=== PATIENT | female | born 1940 | race Caucasian/White ===

== ENCOUNTER 2016-08-05 08:25 | Outpatient (CLI) | payer MEDICARE ==
[2016-08-05 08:58] LABS: Eosinophils 6 % (0-10); Hemoglobin 12.5 g/dL (12.0-16.0); Lymphocytes 55 % (21-51); MDiff Complete? YES; Mean Corpuscular Hemoglobin 31.2 pg (27.0-31.0); Mean Corpuscular Volume 97.4 fl (81.0-99.0); Mean Platelet Volume 6.7 fL (7.4-10.4); Monocytes 2 % (0-10); Neutrophil 37 % (42-75); Platelet Count 174 thou/uL (130-400); RBC Distribution Width 13.4 % (11.5-14.5); Red Blood Cell (RBC) Count 4.01 mill/uL (4.20-5.40); White Blood Cell (WBC) Count 6.7 thou/uL (4.8-10.8)
[2016-08-05 08:59] LABS: ALT (SGPT) 15 U/L (0-55); AST (SGOT) 17 U/L (5-34); Albumin 3.9 g/dL (3.4-4.8); Alkaline Phosphatase 82 U/L (40-150); Anion Gap 15 mmol/L (10-20); BUN (Urea Nitrogen) 35 mg/dL (9.8-20.1); Bilirubin, Total 0.5 mg/dL (0.2-1.2); Calc. Creatinine Clearance 0 mL/min (70-130); Calcium 9.1 mg/dL (7.8-10.44); Carbon Dioxide 24 mmol/L (23-31); Cardiac Risk 2.3 (Less than 4.5); Chloride 108 mmol/L (98-107); Cholesterol 172 mg/dL (< 200 Desired); Estimated GFR-MDRD 54; Globulin 2.7 g/dL (2.4-3.5); Glucose 86 mg/dL (83-110); HDL Cholesterol 74 mg/dL (>60 Neg Risk); LDL Cholesterol, Calculated 75 mg/dL; Potassium 4.3 mmol/L (3.5-5.1); Protein, Total 6.6 g/dL (5.8-8.1); Sodium 143 mmol/L (136-145); Triglycerides 114 mg/dL (Less than 150); Uric Acid 6.7 mg/dL (2.6-6.0)
[2016-08-05 10:09] LABS: Thyroid Stimulating Hormone 8.1635 uIU/mL (0.35-4.94); Vitamin D, 25 Hydroxy 22.8 ng/mL (> 30.0)
== END 2016-08-05 08:26 | disposition home or self-care (01) ==
LOC: MADLAB 08:25
PROVIDERS: ATTEND Specialist
DX: E78.5 Hyperlipidemia, unspecified (principal); E03.9 Hypothyroidism, unspecified; E55.9 Vitamin D deficiency, unspecified
CPT/HCPCS: 36415; 80053; 80061; 82306; 84443; 84550; 85025

== ENCOUNTER 2018-09-02 10:31 | Outpatient (CLI) | payer MEDICARE, MEDICAID ==
[2018-09-02 11:24] LABS: Anion Gap 19 mmol/L (10-20); BUN (Urea Nitrogen) 32 mg/dL (9.8-20.1); Calc. Creatinine Clearance 0 mL/min (70-130); Carbon Dioxide 19 mmol/L (23-31); Chloride 109 mmol/L (98-107); Estimated GFR-MDRD 27; Glucose 105 mg/dL (83-110); Sodium 144 mmol/L (136-145)
[2018-09-02 11:36] LABS: #Basophils 0.1 thou/uL (0.0-0.2); #Eosinphils 0.6 thou/uL (0.0-0.7); #Lymphocytes 2.4 thou/uL (1.20-3.40); #Monocytes 0.6 thou/uL (0.11-0.59); #Neutrophils 5.7 thou/uL (1.40-6.50); %Basophils 1.4 % (0.0-1.0); %Eosinophils 6.6 % (0.0-10.0); %Lymphocytes 25.2 % (21.0-51.0); %Monocytes 6.4 % (0.0-10.0); %Neutrophils 60.4 % (42.0-75.0); Hemoglobin 11.9 g/dL (12.0-16.0); Mean Corpuscular HGB CONC 30.8 g/dL (32.0-36.0); Mean Corpuscular Volume 107.2 fL (78.0-98.0); Mean Platelet Volume 6.6 fL (7.4-10.4); Platelet Count 306 thou/uL (130-400); RBC Distribution Width 16.9 % (11.5-14.5); Red Blood Cell (RBC) Count 3.61 mill/uL (4.20-5.40); White Blood Cell (WBC) Count 9.4 thou/uL (4.8-10.8)
[2018-09-02 11:37] LABS: Band 5 % (5-11); Eosinophils 7 % (0-10); Lymphocytes 22 % (21-51); MDiff Complete? YES; Macrocytosis SLIGHT = 6-15 cells (100X) (0-5/hpf); Monocytes 3 % (0-10); Neutrophil 63 % (42-75); Platelet Morphology Comment Appears Adequate
[2018-09-02 12:51] LABS: Potassium 2.7 mmol/L (3.5-5.1)
== END 2018-09-02 10:32 | disposition home or self-care (01) ==
LOC: MADLAB 10:31
PROVIDERS: ATTEND Specialist
DX: I11.0 Hypertensive heart disease with heart failure (principal); I50.9 Heart failure, unspecified
CPT/HCPCS: 36415; 80048; 83880; 85025

== ENCOUNTER 2019-06-26 11:46 | Emergency (ER) | payer MEDICARE, MEDICAID ==
[2019-06-26] MEDS ORDERED: Clindamycin 150 MG CAP ONE (12:21)
== END 2019-06-26 12:30 | disposition home or self-care (01) ==
LOC: MADERS 11:46
DX: L03.115 Cellulitis of right lower limb (principal); I10 Essential (primary) hypertension; M10.9 Gout, unspecified; M06.9 Rheumatoid arthritis, unspecified; F32.9 Major depressive disorder, single episode, unspecified; Z86.73 Personal history of transient ischemic attack (TIA), and cerebral infarction without residual deficits; Z79.899 Other long term (current) drug therapy
CPT/HCPCS: 99283

== ENCOUNTER 2020-09-04 16:34 | Inpatient (IN) | payer MEDICARE, MEDICAID ==
[2020-09-04] MEDS ORDERED: Ondansetron ODT 4 MG TAB PO PRN (18:04)
[2020-09-04] MEDS ORDERED: Nitroglycerin 0.4 MG TAB (25 Tab Bottle) SL PRN (18:04)
[2020-09-04] MEDS: Apixaban 5 MG TAB PO SCH (20:45)
[2020-09-04] MEDS: Magnesium Oxide 400 MG TAB PO SCH (20:45)
[2020-09-04] MEDS: Potassium Chloride 20 MEQ TAB PO SCH (20:46)
[2020-09-04] MEDS: Pramipexole Di-HCl 0.25 MG TAB PO SCH (20:46)
[2020-09-04] MEDS: Docusate 100 MG CAP PO SCH (20:47)
[2020-09-04] MEDS: Budesonide 0.5 MG/2 ML NEB NEB SCH (20:47)
[2020-09-04] MEDS: Acetaminophen 325 MG TAB PO PRN (20:57)
[2020-09-04] MEDS: Emollient 15 oz bottle 450 ML, Triamcinolone Acetonide 200 MG TOP SCH (21:02)
[2020-09-05 05:38] LABS: #Basophils 0.2 thou/uL (0.0-0.2); #Eosinphils 0.7 thou/uL (0.0-0.7); #Lymphocytes 1.1 thou/uL (1.20-3.40); #Monocytes 1.1 thou/uL (0.11-0.59); #Neutrophils 4.3 thou/uL (1.40-6.50); %Basophils 2.4 % (0.0-1.0); %Eosinophils 9.9 % (0.0-10.0); %Lymphocytes 15.3 % (21.0-51.0); %Monocytes 14.4 % (0.0-10.0); Hemoglobin 10.7 g/dL (12.0-16.0); Mean Corpuscular HGB CONC 32.2 g/dL (32.0-36.0); Mean Corpuscular Hemoglobin 32.3 pg (27.0-31.0); Mean Corpuscular Volume 100.5 fL (78.0-98.0); Mean Platelet Volume 6.7 fL (7.4-10.4); Platelet Count 338 thou/uL (130-400); RBC Distribution Width 12.9 % (11.5-14.5); Red Blood Cell (RBC) Count 3.32 mill/uL (4.20-5.40); White Blood Cell (WBC) Count 7.3 thou/uL (4.8-10.8)
[2020-09-05] MEDS: Levothyroxine Sodium 125 MCG TAB PO SCH (05:48)
[2020-09-05 05:52] LABS: ALT (SGPT) 13 U/L (8-55); AST (SGOT) 24 U/L (5-34); Albumin 3.3 g/dL (3.4-4.8); Alkaline Phosphatase 73 U/L (40-110); Anion Gap 19 mmol/L (10-20); BUN (Urea Nitrogen) 54 mg/dL (9.8-20.1); Bilirubin, Total 0.3 mg/dL (0.2-1.2); Calc. Creatinine Clearance 32 mL/min (70-130); Calcium 9.6 mg/dL (7.8-10.44); Carbon Dioxide 31 mmol/L (23-31); Chloride 90 mmol/L (98-107); Globulin 3.9 g/dL (2.4-3.5); Glucose 108 mg/dL (83-110); Potassium 4.2 mmol/L (3.5-5.1); Protein, Total 7.2 g/dL (5.8-8.1); Sodium 136 mmol/L (136-145)
[2020-09-05] MEDS: traMADol HCl 50 MG TAB PO PRN (07:58)
[2020-09-05] MEDS: Venlafaxine XR 37.5 MG CAP PO SCH (08:38)
[2020-09-05] MEDS: Spironolactone 25 MG TAB PO SCH (08:38)
[2020-09-05] MEDS: Docusate 100 MG CAP PO SCH ×2 (08:38→21:13)
[2020-09-05] MEDS: Ferrous Sulfate 325 MG TAB PO SCH (08:38)
[2020-09-05] MEDS: Folic Acid 1 MG TAB PO SCH (08:38)
[2020-09-05] MEDS: DULoxetine 30 MG CAP PO SCH (08:38)
[2020-09-05] MEDS: Potassium Chloride 20 MEQ TAB PO SCH ×3 (08:39→21:14)
[2020-09-05] MEDS: Pramipexole Di-HCl 0.25 MG TAB PO SCH ×3 (08:39→21:15)
[2020-09-05] MEDS: Apixaban 5 MG TAB PO SCH (08:39)
[2020-09-05] MEDS: Furosemide 40 MG TAB PO SCH (08:39)
[2020-09-05] MEDS: Budesonide 0.5 MG/2 ML NEB NEB SCH ×2 (08:51→21:10)
[2020-09-05] MEDS: Emollient 15 oz bottle 450 ML, Triamcinolone Acetonide 200 MG TOP SCH ×2 (08:53→21:18)
[2020-09-05] MEDS ORDERED: Vancomycin HCl 750 MG VIAL IVPB SCH (09:00)
[2020-09-05] MEDS ORDERED: Evolocumab [Repatha Syringe] 140 MG/ML Syringe SC SCH (09:00)
[2020-09-05] MEDS: Vancomycin HCl 750 MG in Sodium Chloride 0.9% 250 ML 250 ML IVPB SCH (11:30)
[2020-09-05] MEDS: Acetaminophen 325 MG TAB PO PRN (14:58)
[2020-09-05] MEDS: Apixaban 2.5 MG TAB PO SCH (21:10)
[2020-09-05] MEDS: Magnesium Oxide 400 MG TAB PO SCH (21:13)
[2020-09-06] MEDS: Levothyroxine Sodium 125 MCG TAB PO SCH (05:29)
[2020-09-06] MEDS: Budesonide 0.5 MG/2 ML NEB NEB SCH ×2 (08:49→20:49)
[2020-09-06] MEDS: Pramipexole Di-HCl 0.25 MG TAB PO SCH ×3 (08:50→20:50)
[2020-09-06] MEDS: Venlafaxine XR 37.5 MG CAP PO SCH (08:50)
[2020-09-06] MEDS: DULoxetine 30 MG CAP PO SCH (08:50)
[2020-09-06] MEDS: Folic Acid 1 MG TAB PO SCH (08:51)
[2020-09-06] MEDS: Docusate 100 MG CAP PO SCH ×2 (08:51→20:52)
[2020-09-06] MEDS: Spironolactone 25 MG TAB PO SCH (08:51)
[2020-09-06] MEDS: Ferrous Sulfate 325 MG TAB PO SCH (08:51)
[2020-09-06] MEDS: Apixaban 2.5 MG TAB PO SCH ×2 (08:52→20:49)
[2020-09-06] MEDS: Furosemide 40 MG TAB PO SCH (08:52)
[2020-09-06] MEDS: Potassium Chloride 20 MEQ TAB PO SCH ×3 (08:52→20:51)
[2020-09-06] MEDS: Emollient 15 oz bottle 450 ML, Triamcinolone Acetonide 200 MG TOP SCH ×2 (08:53→20:52)
[2020-09-06] MEDS: Vancomycin HCl 750 MG in Sodium Chloride 0.9% 250 ML 250 ML IVPB SCH (11:19)
[2020-09-06] MEDS: Simethicone Chewable 80 MG TAB PO PRN (11:21)
[2020-09-06] MEDS: Magnesium Oxide 400 MG TAB PO SCH (20:51)
[2020-09-07] MEDS: Acetaminophen 325 MG TAB PO PRN (01:21)
[2020-09-07] MEDS: Levothyroxine Sodium 125 MCG TAB PO SCH (05:20)
[2020-09-07 05:44] LABS: Anisocytosis SLIGHT = 6-15 cells (100X) (0-5/hpf); Band 6 % (5-11); Eosinophils 8 % (0-10); Hypochromia SLIGHT = 6-15 cells (100X) (0-5/hpf); Lymphocytes 24 % (21-51); MDiff Complete? YES; Macrocytosis SLIGHT = 6-15 cells (100X) (0-5/hpf); Mean Corpuscular HGB CONC 30.7 g/dL (32.0-36.0); Mean Corpuscular Hemoglobin 31.1 pg (27.0-31.0); Mean Corpuscular Volume 101.4 fL (78.0-98.0); Monocytes 10 % (0-10); Neutrophil 52 % (42-75); Platelet Count 301 thou/uL (130-400); Platelet Morphology Comment Appears Adequate; RBC Distribution Width 13.6 % (11.5-14.5); White Blood Cell (WBC) Count 8.8 thou/uL (4.8-10.8)
[2020-09-07 05:46] LABS: Anion Gap 16 mmol/L (10-20); BUN (Urea Nitrogen) 60 mg/dL (9.8-20.1); Calc. Creatinine Clearance 32 mL/min (70-130); Calcium 9.2 mg/dL (7.8-10.44); Carbon Dioxide 29 mmol/L (23-31); Chloride 96 mmol/L (98-107); Glucose 101 mg/dL (83-110); Potassium 6.1 mmol/L (3.5-5.1); Sodium 135 mmol/L (136-145)
[2020-09-07] MEDS: Budesonide 0.5 MG/2 ML NEB NEB SCH ×2 (09:33→21:46)
[2020-09-07] MEDS: DULoxetine 30 MG CAP PO SCH (09:34)
[2020-09-07] MEDS: Apixaban 2.5 MG TAB PO SCH ×2 (09:35→21:46)
[2020-09-07] MEDS: Venlafaxine XR 37.5 MG CAP PO SCH (09:35)
[2020-09-07] MEDS: Ferrous Sulfate 325 MG TAB PO SCH (09:36)
[2020-09-07] MEDS: Folic Acid 1 MG TAB PO SCH (09:36)
[2020-09-07] MEDS: Docusate 100 MG CAP PO SCH ×2 (09:36→21:46)
[2020-09-07] MEDS: Pramipexole Di-HCl 0.25 MG TAB PO SCH ×3 (09:37→21:46)
[2020-09-07] MEDS: Spironolactone 25 MG TAB PO SCH (09:37)
[2020-09-07] MEDS: Furosemide 40 MG TAB PO SCH (09:37)
[2020-09-07] MEDS: Potassium Chloride 20 MEQ TAB PO SCH ×2 (09:38→15:10)
[2020-09-07] MEDS: Emollient 15 oz bottle 450 ML, Triamcinolone Acetonide 200 MG TOP SCH ×2 (09:38→21:48)
[2020-09-07 11:13] LABS: Vancomycin, Trough 25.8 ug/mL
[2020-09-07] MEDS: Vancomycin HCl 750 MG in Sodium Chloride 0.9% 250 ML 250 ML IVPB SCH (11:46)
[2020-09-07] MEDS ORDERED: Vancomycin HCl 750 MG in Sodium Chloride 0.9% 250 ML 250 ML IVPB SCH (19:45)
[2020-09-07] MEDS: Magnesium Oxide 400 MG TAB PO SCH (21:46)
[2020-09-08] MEDS: Acetaminophen 325 MG TAB PO PRN ×2 (04:02→08:17)
[2020-09-08] MEDS: Levothyroxine Sodium 125 MCG TAB PO SCH (05:52)
[2020-09-08] MEDS: Pramipexole Di-HCl 0.25 MG TAB PO SCH ×3 (08:16→21:02)
[2020-09-08] MEDS: Furosemide 40 MG TAB PO SCH (08:17)
[2020-09-08] MEDS: Budesonide 0.5 MG/2 ML NEB NEB SCH ×2 (08:17→21:03)
[2020-09-08] MEDS: DULoxetine 30 MG CAP PO SCH (08:17)
[2020-09-08] MEDS: Venlafaxine XR 37.5 MG CAP PO SCH (08:18)
[2020-09-08] MEDS: Docusate 100 MG CAP PO SCH ×2 (08:19→21:02)
[2020-09-08] MEDS: Ferrous Sulfate 325 MG TAB PO SCH (08:19)
[2020-09-08] MEDS: Emollient 15 oz bottle 450 ML, Triamcinolone Acetonide 200 MG TOP SCH ×2 (08:20→21:03)
[2020-09-08] MEDS: Apixaban 2.5 MG TAB PO SCH ×2 (08:20→21:02)
[2020-09-08] MEDS: Folic Acid 1 MG TAB PO SCH (08:20)
[2020-09-08 11:18] LABS: Vancomycin, Random 25.4 ug/mL (See Comment)
[2020-09-08] MEDS: Nystatin 500,000 UNITS/5 ML UDCUP SSW SCH ×3 (13:11→21:01)
[2020-09-08] MEDS: Magnesium Oxide 400 MG TAB PO SCH (21:02)
[2020-09-09] MEDS: Levothyroxine Sodium 125 MCG TAB PO SCH (05:22)
[2020-09-09 05:58] LABS: Anion Gap 18 mmol/L (10-20); BUN (Urea Nitrogen) 58 mg/dL (9.8-20.1); Calc. Creatinine Clearance 37 mL/min (70-130); Calcium 9.1 mg/dL (7.8-10.44); Carbon Dioxide 28 mmol/L (23-31); Chloride 94 mmol/L (98-107); Glucose 102 mg/dL (83-110); Potassium 4.8 mmol/L (3.5-5.1); Sodium 135 mmol/L (136-145)
[2020-09-09] MEDS: Pramipexole Di-HCl 0.25 MG TAB PO SCH ×3 (08:32→21:16)
[2020-09-09] MEDS: Simethicone Chewable 80 MG TAB PO PRN (08:32)
[2020-09-09] MEDS: Nystatin 500,000 UNITS/5 ML UDCUP SSW SCH ×4 (08:32→21:17)
[2020-09-09] MEDS: Venlafaxine XR 37.5 MG CAP PO SCH (08:33)
[2020-09-09] MEDS: Budesonide 0.5 MG/2 ML NEB NEB SCH ×2 (08:33→21:23)
[2020-09-09] MEDS: Ferrous Sulfate 325 MG TAB PO SCH (08:33)
[2020-09-09] MEDS: DULoxetine 30 MG CAP PO SCH (08:33)
[2020-09-09] MEDS: Folic Acid 1 MG TAB PO SCH (08:34)
[2020-09-09] MEDS: Apixaban 2.5 MG TAB PO SCH ×2 (08:34→21:19)
[2020-09-09] MEDS: Furosemide 40 MG TAB PO SCH (08:34)
[2020-09-09] MEDS: Docusate 100 MG CAP PO SCH ×2 (08:34→21:17)
[2020-09-09] MEDS: Methotrexate Sodium 2.5 MG TAB PO SCH ×2 (08:39→08:40)
[2020-09-09] MEDS: Emollient 15 oz bottle 450 ML, Triamcinolone Acetonide 200 MG TOP SCH ×2 (08:40→21:26)
[2020-09-09] MEDS: Magnesium Oxide 400 MG TAB PO SCH (21:17)
[2020-09-10] MEDS: Acetaminophen 325 MG TAB PO PRN (00:15)
[2020-09-10] MEDS: Levothyroxine Sodium 125 MCG TAB PO SCH (05:56)
[2020-09-10] MEDS: Pramipexole Di-HCl 0.25 MG TAB PO SCH ×3 (08:21→21:13)
[2020-09-10] MEDS: Nystatin 500,000 UNITS/5 ML UDCUP SSW SCH ×5 (08:21→21:22)
[2020-09-10] MEDS: Budesonide 0.5 MG/2 ML NEB NEB SCH ×2 (08:21→21:16)
[2020-09-10] MEDS: Ferrous Sulfate 325 MG TAB PO SCH (08:22)
[2020-09-10] MEDS: Venlafaxine XR 37.5 MG CAP PO SCH (08:22)
[2020-09-10] MEDS: Apixaban 2.5 MG TAB PO SCH ×2 (08:22→21:14)
[2020-09-10] MEDS: DULoxetine 30 MG CAP PO SCH (08:22)
[2020-09-10] MEDS: Emollient 15 oz bottle 450 ML, Triamcinolone Acetonide 200 MG TOP SCH ×2 (08:23→21:17)
[2020-09-10] MEDS: Folic Acid 1 MG TAB PO SCH (08:23)
[2020-09-10] MEDS: Furosemide 40 MG TAB PO SCH (08:23)
[2020-09-10] MEDS: Polyethylene Glycol 3350 17 GM Packet PO SCH (10:08)
[2020-09-10 13:11] LABS: Vancomycin, Random 14.5 ug/mL (See Comment)
[2020-09-10] MEDS: Magnesium Oxide 400 MG TAB PO SCH (21:13)
[2020-09-10] MEDS: Melatonin 3 MG TAB PO SCH (21:15)
[2020-09-11] MEDS: Levothyroxine Sodium 125 MCG TAB PO SCH (06:06)
[2020-09-11] MEDS: Venlafaxine XR 37.5 MG CAP PO SCH (10:13)
[2020-09-11] MEDS: Pramipexole Di-HCl 0.25 MG TAB PO SCH ×3 (10:13→21:45)
[2020-09-11] MEDS: Folic Acid 1 MG TAB PO SCH (10:14)
[2020-09-11] MEDS: Ferrous Sulfate 325 MG TAB PO SCH (10:14)
[2020-09-11] MEDS: Apixaban 2.5 MG TAB PO SCH ×2 (10:15→21:47)
[2020-09-11] MEDS: Nystatin 500,000 UNITS/5 ML UDCUP SSW SCH ×4 (10:15→21:30)
[2020-09-11] MEDS: DULoxetine 30 MG CAP PO SCH (10:15)
[2020-09-11] MEDS: Furosemide 40 MG TAB PO SCH (10:15)
[2020-09-11] MEDS: Budesonide 0.5 MG/2 ML NEB NEB SCH ×2 (10:18→21:47)
[2020-09-11] MEDS: Polyethylene Glycol 3350 17 GM Packet PO SCH (10:19)
[2020-09-11] MEDS: Emollient 15 oz bottle 450 ML, Triamcinolone Acetonide 200 MG TOP SCH ×2 (10:19→21:00)
[2020-09-11] MEDS: Acetaminophen 325 MG TAB PO PRN ×2 (11:01→21:47)
[2020-09-11] MEDS: Magnesium Oxide 400 MG TAB PO SCH (21:45)
[2020-09-11] MEDS: Melatonin 3 MG TAB PO SCH (21:46)
[2020-09-12] MEDS: Levothyroxine Sodium 125 MCG TAB PO SCH (04:56)
[2020-09-12] MEDS ORDERED: Zolpidem Tartrate 5 MG TAB PO PRN (08:16)
[2020-09-12] MEDS ORDERED: Promethazine DM 6.25-15mg/5ml 120 ML BOT PO PRN ×2 (08:17→14:45)
[2020-09-12] MEDS: Polyethylene Glycol 3350 17 GM Packet PO SCH (08:57)
[2020-09-12] MEDS: Nystatin 500,000 UNITS/5 ML UDCUP SSW SCH ×4 (08:57→20:48)
[2020-09-12] MEDS: Pramipexole Di-HCl 0.25 MG TAB PO SCH (08:57)
[2020-09-12] MEDS: Apixaban 2.5 MG TAB PO SCH ×2 (08:58→20:43)
[2020-09-12] MEDS: DULoxetine 30 MG CAP PO SCH (08:58)
[2020-09-12] MEDS: Folic Acid 1 MG TAB PO SCH (08:59)
[2020-09-12] MEDS: Ferrous Sulfate 325 MG TAB PO SCH (08:59)
[2020-09-12] MEDS: Venlafaxine XR 37.5 MG CAP PO SCH (08:59)
[2020-09-12] MEDS: Furosemide 40 MG TAB PO SCH (08:59)
[2020-09-12] MEDS: Acetaminophen 325 MG TAB PO PRN (09:00)
[2020-09-12] MEDS: Budesonide 0.5 MG/2 ML NEB NEB SCH ×2 (09:00→20:46)
[2020-09-12] MEDS: Emollient 15 oz bottle 450 ML, Triamcinolone Acetonide 200 MG TOP SCH ×2 (10:28→20:46)
[2020-09-12] MEDS: Pramipexole Di-HCl 1 MG TAB PO SCH ×2 (15:07→20:45)
[2020-09-12] MEDS: Guaifenesin DM 100-10/5 ML UDCUP PO PRN (17:21)
[2020-09-12] MEDS ORDERED: Furosemide 40 MG TAB PO SCH (18:15)
[2020-09-12] MEDS: Magnesium Oxide 400 MG TAB PO SCH (20:44)
[2020-09-13] MEDS: Levothyroxine Sodium 125 MCG TAB PO SCH (05:39)
[2020-09-13 05:41] LABS: #Basophils 0.1 thou/uL (0.0-0.2); #Eosinphils 0.8 thou/uL (0.0-0.7); #Lymphocytes 1.9 thou/uL (1.20-3.40); #Monocytes 0.2 thou/uL (0.11-0.59); #Neutrophils 3.4 thou/uL (1.40-6.50); %Basophils 2.3 % (0.0-1.0); %Eosinophils 12.4 % (0.0-10.0); %Monocytes 2.8 % (0.0-10.0); %Neutrophils 53.5 % (42.0-75.0); Hemoglobin 9.1 g/dL (12.0-16.0); Mean Corpuscular Hemoglobin 31.2 pg (27.0-31.0); Mean Corpuscular Volume 100.5 fL (78.0-98.0); Mean Platelet Volume 6.4 fL (7.4-10.4); Platelet Count 274 thou/uL (130-400); RBC Distribution Width 14.2 % (11.5-14.5); Red Blood Cell (RBC) Count 2.93 mill/uL (4.20-5.40); White Blood Cell (WBC) Count 6.4 thou/uL (4.8-10.8)
[2020-09-13 05:45] LABS: Anion Gap 14 mmol/L (10-20); BUN (Urea Nitrogen) 56 mg/dL (9.8-20.1); Calc. Creatinine Clearance 44 mL/min (70-130); Carbon Dioxide 35 mmol/L (23-31); Chloride 94 mmol/L (98-107); Glucose 88 mg/dL (83-110); Potassium 4.4 mmol/L (3.5-5.1); Sodium 139 mmol/L (136-145)
[2020-09-13] MEDS: Pramipexole Di-HCl 1 MG TAB PO SCH ×3 (08:47→20:40)
[2020-09-13] MEDS: Venlafaxine XR 37.5 MG CAP PO SCH (08:47)
[2020-09-13] MEDS: Folic Acid 1 MG TAB PO SCH (08:47)
[2020-09-13] MEDS: Ferrous Sulfate 325 MG TAB PO SCH (08:47)
[2020-09-13] MEDS: Budesonide 0.5 MG/2 ML NEB NEB SCH ×2 (08:48→20:36)
[2020-09-13] MEDS: DULoxetine 30 MG CAP PO SCH (08:48)
[2020-09-13] MEDS: Apixaban 5 MG TAB PO SCH ×2 (08:50→20:39)
[2020-09-13] MEDS: Furosemide 40 MG TAB PO SCH ×2 (08:51→15:15)
[2020-09-13] MEDS: Acetaminophen 325 MG TAB PO PRN ×2 (08:59→20:39)
[2020-09-13] MEDS: Polyethylene Glycol 3350 17 GM Packet PO SCH (08:59)
[2020-09-13] MEDS: Guaifenesin DM 100-10/5 ML UDCUP PO PRN (09:00)
[2020-09-13] MEDS: Nystatin 500,000 UNITS/5 ML UDCUP SSW SCH ×4 (09:48→20:41)
[2020-09-13] MEDS: Emollient 15 oz bottle 450 ML, Triamcinolone Acetonide 200 MG TOP SCH ×2 (09:49→20:41)
[2020-09-13] MEDS: Cepastat Lozenges 1 LOZ PO PRN ×2 (12:28→20:39)
[2020-09-13] MEDS: Magnesium Oxide 400 MG TAB PO SCH (20:37)
[2020-09-13] MEDS: Zolpidem Tartrate 5 MG TAB PO PRN (20:40)
[2020-09-14] MEDS: Cepastat Lozenges 1 LOZ PO PRN (04:30)
[2020-09-14] MEDS: Levothyroxine Sodium 125 MCG TAB PO SCH (05:22)
[2020-09-14] MEDS: Acetaminophen 325 MG TAB PO PRN (09:26)
[2020-09-14] MEDS: Polyethylene Glycol 3350 17 GM Packet PO SCH (09:28)
[2020-09-14] MEDS: Pramipexole Di-HCl 1 MG TAB PO SCH ×3 (09:29→20:57)
[2020-09-14] MEDS: Folic Acid 1 MG TAB PO SCH (09:29)
[2020-09-14] MEDS: Venlafaxine XR 37.5 MG CAP PO SCH (09:29)
[2020-09-14] MEDS: Ferrous Sulfate 325 MG TAB PO SCH (09:29)
[2020-09-14] MEDS: DULoxetine 30 MG CAP PO SCH (09:30)
[2020-09-14] MEDS: Furosemide 40 MG TAB PO SCH ×2 (09:30→14:10)
[2020-09-14] MEDS: Apixaban 5 MG TAB PO SCH ×2 (09:30→21:03)
[2020-09-14] MEDS: Budesonide 0.5 MG/2 ML NEB NEB SCH ×2 (09:30→21:01)
[2020-09-14] MEDS: Nystatin 500,000 UNITS/5 ML UDCUP SSW SCH ×4 (09:31→20:57)
[2020-09-14] MEDS: Emollient 15 oz bottle 450 ML, Triamcinolone Acetonide 200 MG TOP SCH ×2 (09:31→21:08)
[2020-09-14] MEDS: traMADol HCl 50 MG TAB PO PRN (19:34)
[2020-09-14] MEDS: Magnesium Oxide 400 MG TAB PO SCH (20:57)
[2020-09-15] MEDS: Levothyroxine Sodium 125 MCG TAB PO SCH (05:26)
[2020-09-15] MEDS: Ferrous Sulfate 325 MG TAB PO SCH (09:11)
[2020-09-15] MEDS: Apixaban 5 MG TAB PO SCH ×2 (09:12→20:59)
[2020-09-15] MEDS: Venlafaxine XR 37.5 MG CAP PO SCH (09:12)
[2020-09-15] MEDS: Folic Acid 1 MG TAB PO SCH (09:12)
[2020-09-15] MEDS: Polyethylene Glycol 3350 17 GM Packet PO SCH (09:12)
[2020-09-15] MEDS: Pramipexole Di-HCl 1 MG TAB PO SCH ×3 (09:12→21:00)
[2020-09-15] MEDS: DULoxetine 30 MG CAP PO SCH (09:13)
[2020-09-15] MEDS: Furosemide 40 MG TAB PO SCH ×2 (09:13→13:40)
[2020-09-15] MEDS: Nystatin 500,000 UNITS/5 ML UDCUP SSW SCH ×4 (09:13→21:01)
[2020-09-15] MEDS: Budesonide 0.5 MG/2 ML NEB NEB SCH ×2 (09:14→21:11)
[2020-09-15] MEDS: Emollient 15 oz bottle 450 ML, Triamcinolone Acetonide 200 MG TOP SCH ×2 (10:53→19:45)
[2020-09-15] MEDS: traMADol HCl 50 MG TAB PO PRN (19:42)
[2020-09-15] MEDS: Magnesium Oxide 400 MG TAB PO SCH (20:59)
[2020-09-15] MEDS: Acetaminophen 325 MG TAB PO PRN (21:07)
[2020-09-16] MEDS: Levothyroxine Sodium 125 MCG TAB PO SCH (05:27)
[2020-09-16] MEDS: traMADol HCl 50 MG TAB PO PRN (07:41)
[2020-09-16] MEDS: Ferrous Sulfate 325 MG TAB PO SCH (07:41)
[2020-09-16] MEDS: Polyethylene Glycol 3350 17 GM Packet PO SCH (09:29)
[2020-09-16] MEDS: Venlafaxine XR 37.5 MG CAP PO SCH (09:31)
[2020-09-16] MEDS: DULoxetine 30 MG CAP PO SCH (09:31)
[2020-09-16] MEDS: Pramipexole Di-HCl 1 MG TAB PO SCH ×3 (09:31→20:44)
[2020-09-16] MEDS: Folic Acid 1 MG TAB PO SCH (09:31)
[2020-09-16] MEDS: Apixaban 5 MG TAB PO SCH ×2 (09:31→20:41)
[2020-09-16] MEDS: Nystatin 500,000 UNITS/5 ML UDCUP SSW SCH ×4 (09:32→20:41)
[2020-09-16] MEDS: Furosemide 40 MG TAB PO SCH ×2 (09:32→15:05)
[2020-09-16] MEDS: Budesonide 0.5 MG/2 ML NEB NEB SCH ×2 (09:35→20:43)
[2020-09-16] MEDS: Acetaminophen 325 MG TAB PO PRN (09:44)
[2020-09-16] MEDS: Methotrexate Sodium 2.5 MG TAB PO SCH (09:45)
[2020-09-16] MEDS: Emollient 15 oz bottle 450 ML, Triamcinolone Acetonide 200 MG TOP SCH ×2 (11:03→20:45)
[2020-09-16] MEDS: Cepastat Lozenges 1 LOZ PO PRN ×2 (11:04→20:42)
[2020-09-16] MEDS: Magnesium Oxide 400 MG TAB PO SCH (20:41)
[2020-09-16] MEDS: Zolpidem Tartrate 5 MG TAB PO PRN (20:43)
[2020-09-17] MEDS: Levothyroxine Sodium 125 MCG TAB PO SCH (05:22)
[2020-09-17] MEDS: Cepastat Lozenges 1 LOZ PO PRN (06:25)
[2020-09-17] MEDS: Budesonide 0.5 MG/2 ML NEB NEB SCH ×2 (08:36→20:19)
[2020-09-17] MEDS: Pramipexole Di-HCl 1 MG TAB PO SCH ×3 (08:37→20:50)
[2020-09-17] MEDS: Folic Acid 1 MG TAB PO SCH (08:37)
[2020-09-17] MEDS: DULoxetine 30 MG CAP PO SCH (08:37)
[2020-09-17] MEDS: Venlafaxine XR 37.5 MG CAP PO SCH (08:37)
[2020-09-17] MEDS: Apixaban 5 MG TAB PO SCH ×2 (08:38→20:24)
[2020-09-17] MEDS: Furosemide 40 MG TAB PO SCH ×2 (08:38→14:10)
[2020-09-17] MEDS: Ferrous Sulfate 325 MG TAB PO SCH (08:38)
[2020-09-17] MEDS: Emollient 15 oz bottle 450 ML, Triamcinolone Acetonide 200 MG TOP SCH ×2 (08:38→20:49)
[2020-09-17] MEDS: Polyethylene Glycol 3350 17 GM Packet PO SCH (08:39)
[2020-09-17] MEDS: Nystatin 500,000 UNITS/5 ML UDCUP SSW SCH ×4 (08:39→20:48)
[2020-09-17 11:17] VITALS: BMI 36.4
[2020-09-17] MEDS: Acetaminophen 325 MG TAB PO PRN (14:13)
[2020-09-17] MEDS: traMADol HCl 50 MG TAB PO PRN (19:22)
[2020-09-17] MEDS: Magnesium Oxide 400 MG TAB PO SCH (20:22)
[2020-09-18] MEDS: Acetaminophen 325 MG TAB PO PRN ×2 (02:31→15:29)
[2020-09-18] MEDS: Cepastat Lozenges 1 LOZ PO PRN (02:32)
[2020-09-18] MEDS: Levothyroxine Sodium 125 MCG TAB PO SCH (05:26)
[2020-09-18] MEDS: Polyethylene Glycol 3350 17 GM Packet PO SCH (08:51)
[2020-09-18] MEDS: Ferrous Sulfate 325 MG TAB PO SCH (08:55)
[2020-09-18] MEDS: Pramipexole Di-HCl 1 MG TAB PO SCH ×3 (08:55→21:47)
[2020-09-18] MEDS: Apixaban 5 MG TAB PO SCH ×2 (08:55→21:21)
[2020-09-18] MEDS: Furosemide 40 MG TAB PO SCH ×3 (08:55→15:23)
[2020-09-18] MEDS: Nystatin 500,000 UNITS/5 ML UDCUP SSW SCH ×4 (08:55→21:47)
[2020-09-18] MEDS: Folic Acid 1 MG TAB PO SCH (08:55)
[2020-09-18] MEDS: Venlafaxine XR 37.5 MG CAP PO SCH (08:56)
[2020-09-18] MEDS: DULoxetine 30 MG CAP PO SCH (08:56)
[2020-09-18] MEDS: Budesonide 0.5 MG/2 ML NEB NEB SCH ×2 (09:04→19:53)
[2020-09-18] MEDS: Emollient 15 oz bottle 450 ML, Triamcinolone Acetonide 200 MG TOP SCH ×2 (09:06→21:47)
[2020-09-18] MEDS: traMADol HCl 50 MG TAB PO PRN (16:24)
[2020-09-18 19:35] VITALS: BP 101/76; TEMP 97.9
[2020-09-18] MEDS: Magnesium Oxide 400 MG TAB PO SCH (21:47)
== END 2020-09-18 20:20 | disposition short-term general hospital (02) | DRG 602 ==
LOC: MADMS 16:34
PROVIDERS: ADMIT Family Medicine; ATTEND Family Medicine
DX: L03.115 Cellulitis of right lower limb (principal); I63.9 Cerebral infarction, unspecified; I50.32 Chronic diastolic (congestive) heart failure; J96.11 Chronic respiratory failure with hypoxia; I13.0 Hypertensive heart and chronic kidney disease with heart failure and stage 1 through stage 4 chronic kidney disease, or unspecified chronic kidney disease; G81.94 Hemiplegia, unspecified affecting left nondominant side; R53.81 Other malaise; L03.116 Cellulitis of left lower limb; I48.0 Paroxysmal atrial fibrillation; E66.01 Morbid (severe) obesity due to excess calories; E78.5 Hyperlipidemia, unspecified; M06.9 Rheumatoid arthritis, unspecified; I25.10 Atherosclerotic heart disease of native coronary artery without angina pectoris; K21.9 Gastro-esophageal reflux disease without esophagitis; F32.9 Major depressive disorder, single episode, unspecified; I27.20 Pulmonary hypertension, unspecified; L30.9 Dermatitis, unspecified; I87.2 Venous insufficiency (chronic) (peripheral); E87.5 Hyperkalemia; I89.0 Lymphedema, not elsewhere classified; G47.00 Insomnia, unspecified; G43.909 Migraine, unspecified, not intractable, without status migrainosus; N18.9 Chronic kidney disease, unspecified; Z88.0 Allergy status to penicillin; Z88.1 Allergy status to other antibiotic agents; Z88.8 Allergy status to other drugs, medicaments and biological substances; Z88.6 Allergy status to analgesic agent; Z79.01 Long term (current) use of anticoagulants; Z79.899 Other long term (current) drug therapy; Z79.890 Hormone replacement therapy; Z79.2 Long term (current) use of antibiotics; Z79.51 Long term (current) use of inhaled steroids; Z90.49 Acquired absence of other specified parts of digestive tract; Z90.710 Acquired absence of both cervix and uterus; Z90.89 Acquired absence of other organs; Z68.36 Body mass index [BMI] 36.0-36.9, adult; Z79.891 Long term (current) use of opiate analgesic
CPT/HCPCS: 36415; 71045; 80048; 80053; 80202; 83880; 85025; 94640; J3301; J3370; J7050; J7620; J7626; J8610; Q0162

== ENCOUNTER 2020-09-18 21:22 | Emergency (ER) | payer MEDICARE, MEDICAID | END 2020-09-18 23:21 | disposition short-term general hospital (02) | LOC: MADERS 21:22 | DX: I63.9 Cerebral infarction, unspecified (principal); R29.810 Facial weakness; G81.94 Hemiplegia, unspecified affecting left nondominant side; R51.9 Headache, unspecified; Z79.899 Other long term (current) drug therapy; Z79.01 Long term (current) use of anticoagulants; Z79.51 Long term (current) use of inhaled steroids | CPT/HCPCS: 70450; 71045 ==

== ENCOUNTER 2020-11-01 18:12 | Inpatient (IN) | payer MEDICARE, MEDICAID ==
[2020-11-01] MEDS ORDERED: Hyoscyamine Sulfate SL 0.125 mg Tablet SL PRN (20:08)
[2020-11-01] MEDS ORDERED: Nitroglycerin 0.4 MG TAB (25 Tab Bottle) SL PRN (20:10)
[2020-11-01] MEDS ORDERED: Ondansetron ODT 4 MG TAB SL PRN (20:11)
[2020-11-01] MEDS ORDERED: Simethicone Chewable 80 MG TAB PO PRN (20:21)
[2020-11-01] MEDS: levETIRAcetam 500 MG TAB PO SCH (21:38)
[2020-11-01] MEDS: DULoxetine 30 MG CAP PO SCH (21:38)
[2020-11-01] MEDS: DICLOFENAC TOP SCH (21:38)
[2020-11-01] MEDS: Apixaban 5 MG TAB PO SCH (21:38)
[2020-11-01] MEDS: Pramipexole Di-HCl 1 MG TAB PO SCH (21:39)
[2020-11-01] MEDS: Acetaminophen 325 MG TAB PO PRN (21:39)
[2020-11-02] MEDS: Lorazepam 0.5 MG TAB PO PRN ×2 (03:37→22:00)
[2020-11-02] MEDS: Levothyroxine Sodium 125 MCG TAB PO SCH (05:44)
[2020-11-02] MEDS: Pramipexole Di-HCl 1 MG TAB PO SCH ×3 (09:37→20:14)
[2020-11-02] MEDS: Polyethylene Glycol 3350 17 GM Packet PO SCH (09:37)
[2020-11-02] MEDS: levETIRAcetam 500 MG TAB PO SCH ×2 (09:38→20:15)
[2020-11-02] MEDS: Acetaminophen 325 MG TAB PO PRN ×3 (09:38→22:00)
[2020-11-02] MEDS: Furosemide 20 MG TAB PO SCH (09:38)
[2020-11-02] MEDS: Apixaban 5 MG TAB PO SCH ×2 (09:38→20:15)
[2020-11-02] MEDS: Aspirin Chewable 81 MG TAB PO SCH (09:38)
[2020-11-02] MEDS: DICLOFENAC TOP SCH ×3 (09:39→20:16)
[2020-11-02] MEDS: DULoxetine 30 MG CAP PO SCH (20:14)
[2020-11-02] MEDS: Budesonide 0.5 MG/2 ML NEB NEB SCH (20:16)
[2020-11-03] MEDS: traMADol HCl 50 MG TAB PO PRN ×2 (04:45→20:50)
[2020-11-03] MEDS: Levothyroxine Sodium 125 MCG TAB PO SCH (04:48)
[2020-11-03] MEDS: Aspirin Chewable 81 MG TAB PO SCH (08:30)
[2020-11-03] MEDS: Furosemide 20 MG TAB PO SCH (08:30)
[2020-11-03] MEDS: levETIRAcetam 500 MG TAB PO SCH ×2 (08:30→20:49)
[2020-11-03] MEDS: Acetaminophen 325 MG TAB PO PRN (08:30)
[2020-11-03] MEDS: Apixaban 5 MG TAB PO SCH ×2 (08:30→20:50)
[2020-11-03] MEDS: Pramipexole Di-HCl 1 MG TAB PO SCH ×3 (08:31→20:49)
[2020-11-03] MEDS: Budesonide 0.5 MG/2 ML NEB NEB SCH ×2 (08:31→20:50)
[2020-11-03] MEDS: DICLOFENAC TOP SCH ×4 (08:31→21:19)
[2020-11-03] MEDS: Polyethylene Glycol 3350 17 GM Packet PO SCH (08:32)
[2020-11-03] MEDS ORDERED: Lactase 9,000 UNIT CHEWABLE TAB PO PRN (10:14)
[2020-11-03] MEDS ORDERED: LACTAID PO PRN (10:14)
[2020-11-03] MEDS: DULoxetine 30 MG CAP PO SCH (20:49)
[2020-11-04] MEDS: Acetaminophen 325 MG TAB PO PRN (01:02)
[2020-11-04] MEDS: Budesonide 0.5 MG/2 ML NEB NEB SCH ×2 (09:00→21:09)
[2020-11-04] MEDS: Apixaban 5 MG TAB PO SCH ×2 (09:30→21:06)
[2020-11-04] MEDS: Furosemide 20 MG TAB PO SCH (09:30)
[2020-11-04] MEDS: Levothyroxine Sodium 125 MCG TAB PO SCH (09:30)
[2020-11-04] MEDS: Pramipexole Di-HCl 1 MG TAB PO SCH ×3 (09:30→21:06)
[2020-11-04] MEDS: Polyethylene Glycol 3350 17 GM Packet PO SCH (09:30)
[2020-11-04] MEDS: levETIRAcetam 500 MG TAB PO SCH ×2 (09:30→21:06)
[2020-11-04] MEDS: Aspirin Chewable 81 MG TAB PO SCH (09:30)
[2020-11-04] MEDS: DICLOFENAC TOP SCH ×3 (09:30→21:14)
[2020-11-04] MEDS ORDERED: traMADol HCl 50 MG TAB ONE (09:51)
[2020-11-04] MEDS: traMADol HCl 50 MG TAB PO PRN (09:56)
[2020-11-04] MEDS: DULoxetine 30 MG CAP PO SCH (21:05)
[2020-11-04] MEDS: Lorazepam 0.5 MG TAB PO PRN (21:06)
[2020-11-05] MEDS: Acetaminophen 325 MG TAB PO PRN ×2 (03:44→20:02)
[2020-11-05] MEDS: Levothyroxine Sodium 125 MCG TAB PO SCH (05:14)
[2020-11-05] MEDS: DICLOFENAC TOP SCH (08:56)
[2020-11-05] MEDS: Aspirin Chewable 81 MG TAB PO SCH (08:56)
[2020-11-05] MEDS: Polyethylene Glycol 3350 17 GM Packet PO SCH (08:56)
[2020-11-05] MEDS: Furosemide 20 MG TAB PO SCH (08:56)
[2020-11-05] MEDS: Apixaban 5 MG TAB PO SCH ×2 (08:56→20:02)
[2020-11-05] MEDS: levETIRAcetam 500 MG TAB PO SCH ×2 (08:56→20:02)
[2020-11-05] MEDS: Pramipexole Di-HCl 1 MG TAB PO SCH ×3 (08:56→20:00)
[2020-11-05] MEDS: Budesonide 0.5 MG/2 ML NEB NEB SCH ×2 (08:56→20:00)
[2020-11-05] MEDS: [UNRECOGNIZED DRUG - OTHER] TOP SCH ×2 (15:55→20:03)
[2020-11-05] MEDS: DULoxetine 30 MG CAP PO SCH (20:01)
[2020-11-06] MEDS: traMADol HCl 50 MG TAB PO PRN ×2 (00:52→10:21)
[2020-11-06] MEDS: Levothyroxine Sodium 125 MCG TAB PO SCH (05:04)
[2020-11-06] MEDS: Acetaminophen 325 MG TAB PO PRN (06:42)
[2020-11-06] MEDS: Pramipexole Di-HCl 1 MG TAB PO SCH ×3 (08:36→21:42)
[2020-11-06] MEDS: Polyethylene Glycol 3350 17 GM Packet PO SCH (08:38)
[2020-11-06] MEDS: Furosemide 20 MG TAB PO SCH (08:39)
[2020-11-06] MEDS: Aspirin Chewable 81 MG TAB PO SCH (08:39)
[2020-11-06] MEDS: Apixaban 5 MG TAB PO SCH ×2 (08:39→21:41)
[2020-11-06] MEDS: levETIRAcetam 500 MG TAB PO SCH ×2 (08:39→21:43)
[2020-11-06] MEDS: Budesonide 0.5 MG/2 ML NEB NEB SCH ×2 (08:39→21:41)
[2020-11-06] MEDS: [UNRECOGNIZED DRUG - OTHER] TOP SCH ×3 (08:40→21:42)
[2020-11-06] MEDS: DULoxetine 30 MG CAP PO SCH (21:41)
[2020-11-07] MEDS: Acetaminophen 325 MG TAB PO PRN (00:45)
[2020-11-07] MEDS: Levothyroxine Sodium 125 MCG TAB PO SCH (05:14)
[2020-11-07] MEDS: traMADol HCl 50 MG TAB PO PRN (05:15)
[2020-11-07] MEDS: Polyethylene Glycol 3350 17 GM Packet PO SCH (08:07)
[2020-11-07] MEDS: Aspirin Chewable 81 MG TAB PO SCH (08:07)
[2020-11-07] MEDS: Apixaban 5 MG TAB PO SCH ×2 (08:07→20:54)
[2020-11-07] MEDS: Furosemide 20 MG TAB PO SCH (08:07)
[2020-11-07] MEDS: Pramipexole Di-HCl 1 MG TAB PO SCH ×3 (08:07→20:54)
[2020-11-07] MEDS: levETIRAcetam 500 MG TAB PO SCH ×2 (08:07→20:54)
[2020-11-07] MEDS: Budesonide 0.5 MG/2 ML NEB NEB SCH ×2 (08:08→20:54)
[2020-11-07] MEDS: [UNRECOGNIZED DRUG - OTHER] TOP SCH ×3 (08:59→20:55)
[2020-11-07] MEDS: Lorazepam 0.5 MG TAB PO PRN (17:14)
[2020-11-07] MEDS: DULoxetine 30 MG CAP PO SCH (20:53)
[2020-11-08] MEDS: traMADol HCl 50 MG TAB PO PRN ×3 (00:03→18:07)
[2020-11-08] MEDS: Levothyroxine Sodium 125 MCG TAB PO SCH (05:16)
[2020-11-08] MEDS: Acetaminophen 325 MG TAB PO PRN (05:52)
[2020-11-08] MEDS: levETIRAcetam 500 MG TAB PO SCH ×2 (09:47→21:11)
[2020-11-08] MEDS: Furosemide 20 MG TAB PO SCH (09:47)
[2020-11-08] MEDS: Pramipexole Di-HCl 1 MG TAB PO SCH ×3 (09:47→21:11)
[2020-11-08] MEDS: Polyethylene Glycol 3350 17 GM Packet PO SCH (09:47)
[2020-11-08] MEDS: Apixaban 5 MG TAB PO SCH ×2 (09:47→21:11)
[2020-11-08] MEDS: Aspirin Chewable 81 MG TAB PO SCH (09:48)
[2020-11-08] MEDS: Budesonide 0.5 MG/2 ML NEB NEB SCH ×2 (09:54→21:11)
[2020-11-08] MEDS: [UNRECOGNIZED DRUG - OTHER] TOP SCH ×3 (09:57→21:14)
[2020-11-08] MEDS: DULoxetine 30 MG CAP PO SCH (21:11)
[2020-11-09] MEDS: traMADol HCl 50 MG TAB PO PRN ×4 (00:23→17:33)
[2020-11-09] MEDS: Lorazepam 0.5 MG TAB PO PRN ×2 (00:24→21:08)
[2020-11-09] MEDS: Levothyroxine Sodium 125 MCG TAB PO SCH (05:55)
[2020-11-09] MEDS: Pramipexole Di-HCl 1 MG TAB PO SCH ×3 (10:13→20:55)
[2020-11-09] MEDS: levETIRAcetam 500 MG TAB PO SCH ×2 (10:13→20:55)
[2020-11-09] MEDS: Aspirin Chewable 81 MG TAB PO SCH (10:13)
[2020-11-09] MEDS: Polyethylene Glycol 3350 17 GM Packet PO SCH (10:13)
[2020-11-09] MEDS: Furosemide 20 MG TAB PO SCH (10:13)
[2020-11-09] MEDS: Apixaban 5 MG TAB PO SCH ×2 (10:13→20:55)
[2020-11-09] MEDS: [UNRECOGNIZED DRUG - OTHER] TOP SCH ×3 (10:15→21:16)
[2020-11-09] MEDS: Budesonide 0.5 MG/2 ML NEB NEB SCH ×2 (10:15→20:55)
[2020-11-09] MEDS: DULoxetine 30 MG CAP PO SCH (20:55)
[2020-11-10] MEDS: traMADol HCl 50 MG TAB PO PRN ×2 (04:52→10:41)
[2020-11-10] MEDS: Levothyroxine Sodium 125 MCG TAB PO SCH (05:00)
[2020-11-10] MEDS: Pramipexole Di-HCl 1 MG TAB PO SCH ×3 (08:42→20:43)
[2020-11-10] MEDS: Budesonide 0.5 MG/2 ML NEB NEB SCH ×2 (08:42→20:44)
[2020-11-10] MEDS: levETIRAcetam 500 MG TAB PO SCH ×2 (08:42→20:43)
[2020-11-10] MEDS: Apixaban 5 MG TAB PO SCH ×2 (08:43→20:43)
[2020-11-10] MEDS: Polyethylene Glycol 3350 17 GM Packet PO SCH (08:43)
[2020-11-10] MEDS: [UNRECOGNIZED DRUG - OTHER] TOP SCH ×3 (08:43→20:44)
[2020-11-10] MEDS: Furosemide 20 MG TAB PO SCH (08:43)
[2020-11-10] MEDS: Aspirin Chewable 81 MG TAB PO SCH (08:43)
[2020-11-10] MEDS: Lorazepam 0.5 MG TAB PO PRN ×2 (08:45→21:09)
[2020-11-10] MEDS: DULoxetine 30 MG CAP PO SCH (20:43)
[2020-11-11] MEDS: traMADol HCl 50 MG TAB PO PRN ×3 (02:50→17:23)
[2020-11-11] MEDS: Levothyroxine Sodium 125 MCG TAB PO SCH (05:15)
[2020-11-11] MEDS: Furosemide 20 MG TAB PO SCH (09:17)
[2020-11-11] MEDS: Pramipexole Di-HCl 1 MG TAB PO SCH ×3 (09:18→20:29)
[2020-11-11] MEDS: Apixaban 5 MG TAB PO SCH ×2 (09:19→20:29)
[2020-11-11] MEDS: Budesonide 0.5 MG/2 ML NEB NEB SCH ×2 (09:19→20:30)
[2020-11-11] MEDS: Polyethylene Glycol 3350 17 GM Packet PO SCH (09:19)
[2020-11-11] MEDS: Aspirin Chewable 81 MG TAB PO SCH (09:19)
[2020-11-11] MEDS: levETIRAcetam 500 MG TAB PO SCH ×2 (09:19→20:29)
[2020-11-11] MEDS: [UNRECOGNIZED DRUG - OTHER] TOP SCH ×3 (09:25→20:30)
[2020-11-11] MEDS: DULoxetine 30 MG CAP PO SCH (20:29)
[2020-11-11] MEDS: Acetaminophen 325 MG TAB PO PRN (20:53)
[2020-11-11] MEDS: Lorazepam 0.5 MG TAB PO PRN (20:59)
[2020-11-12] MEDS: traMADol HCl 50 MG TAB PO PRN ×2 (02:29→08:25)
[2020-11-12] MEDS: Levothyroxine Sodium 125 MCG TAB PO SCH (05:08)
[2020-11-12 06:08] LABS: Platelet Count 201 thou/uL (130-400)
[2020-11-12] MEDS: Polyethylene Glycol 3350 17 GM Packet PO SCH (08:23)
[2020-11-12] MEDS: Pramipexole Di-HCl 1 MG TAB PO SCH ×3 (08:23→20:31)
[2020-11-12] MEDS: Aspirin Chewable 81 MG TAB PO SCH (08:24)
[2020-11-12] MEDS: Furosemide 20 MG TAB PO SCH (08:24)
[2020-11-12] MEDS: levETIRAcetam 500 MG TAB PO SCH ×2 (08:24→20:31)
[2020-11-12] MEDS: Apixaban 5 MG TAB PO SCH ×2 (08:24→20:31)
[2020-11-12] MEDS: Budesonide 0.5 MG/2 ML NEB NEB SCH ×2 (08:25→20:30)
[2020-11-12] MEDS: [UNRECOGNIZED DRUG - OTHER] TOP SCH (08:28)
[2020-11-12] MEDS ORDERED: Diclofenac 1% 100 GM GEL TP SCH (15:00)
[2020-11-12] MEDS: Diclofenac 1% 100 GM GEL TP SCH ×2 (15:57→20:30)
[2020-11-12] MEDS: Lorazepam 0.5 MG TAB PO PRN (20:30)
[2020-11-12] MEDS: DULoxetine 30 MG CAP PO SCH (20:31)
[2020-11-12 21:19] VITALS: BMI 28.0
[2020-11-13] MEDS: traMADol HCl 50 MG TAB PO PRN ×3 (01:20→16:05)
[2020-11-13] MEDS: Lorazepam 0.5 MG TAB PO PRN ×2 (01:20→20:30)
[2020-11-13] MEDS: Levothyroxine Sodium 125 MCG TAB PO SCH (05:02)
[2020-11-13] MEDS: Pramipexole Di-HCl 1 MG TAB PO SCH ×3 (08:35→20:30)
[2020-11-13] MEDS: Aspirin Chewable 81 MG TAB PO SCH (08:35)
[2020-11-13] MEDS: Furosemide 20 MG TAB PO SCH (08:36)
[2020-11-13] MEDS: levETIRAcetam 500 MG TAB PO SCH ×2 (08:36→20:30)
[2020-11-13] MEDS: Apixaban 5 MG TAB PO SCH ×2 (08:36→20:29)
[2020-11-13] MEDS: Diclofenac 1% 100 GM GEL TP SCH ×3 (08:37→20:31)
[2020-11-13] MEDS: Polyethylene Glycol 3350 17 GM Packet PO SCH (08:38)
[2020-11-13] MEDS: Budesonide 0.5 MG/2 ML NEB NEB SCH ×2 (08:38→20:29)
[2020-11-13] MEDS: DULoxetine 30 MG CAP PO SCH (20:30)
[2020-11-13] MEDS: Acetaminophen 325 MG TAB PO PRN (20:35)
[2020-11-13] MEDS: [UNRECOGNIZED DRUG - OTHER] TOP SCH (20:39)
[2020-11-14] MEDS: Lorazepam 0.5 MG TAB PO PRN ×2 (01:16→21:45)
[2020-11-14] MEDS: traMADol HCl 50 MG TAB PO PRN ×2 (01:16→14:23)
[2020-11-14] MEDS: Levothyroxine Sodium 125 MCG TAB PO SCH (05:41)
[2020-11-14] MEDS: Aspirin Chewable 81 MG TAB PO SCH (08:34)
[2020-11-14] MEDS: Budesonide 0.5 MG/2 ML NEB NEB SCH ×2 (08:34→20:19)
[2020-11-14] MEDS: Apixaban 5 MG TAB PO SCH ×2 (08:34→20:20)
[2020-11-14] MEDS: levETIRAcetam 500 MG TAB PO SCH ×2 (08:34→20:20)
[2020-11-14] MEDS: Pramipexole Di-HCl 1 MG TAB PO SCH ×3 (08:34→20:19)
[2020-11-14] MEDS: Furosemide 20 MG TAB PO SCH (08:34)
[2020-11-14] MEDS: Polyethylene Glycol 3350 17 GM Packet PO SCH (08:35)
[2020-11-14] MEDS: Diclofenac 1% 100 GM GEL TP SCH ×3 (08:44→20:20)
[2020-11-14] MEDS: REPATHA 140 MG SC SCH (17:05)
[2020-11-14] MEDS: Acetaminophen 325 MG TAB PO PRN (17:12)
[2020-11-14] MEDS: DULoxetine 30 MG CAP PO SCH (20:20)
[2020-11-15] MEDS: traMADol HCl 50 MG TAB PO PRN ×3 (02:28→21:44)
[2020-11-15] MEDS: Levothyroxine Sodium 125 MCG TAB PO SCH (05:38)
[2020-11-15] MEDS: Polyethylene Glycol 3350 17 GM Packet PO SCH (08:17)
[2020-11-15] MEDS: levETIRAcetam 500 MG TAB PO SCH ×2 (08:18→21:35)
[2020-11-15] MEDS: Aspirin Chewable 81 MG TAB PO SCH (08:18)
[2020-11-15] MEDS: Apixaban 5 MG TAB PO SCH ×2 (08:18→21:34)
[2020-11-15] MEDS: Pramipexole Di-HCl 1 MG TAB PO SCH ×3 (08:18→21:35)
[2020-11-15] MEDS: Diclofenac 1% 100 GM GEL TP SCH ×3 (08:18→21:39)
[2020-11-15] MEDS: Acetaminophen 325 MG TAB PO PRN (08:19)
[2020-11-15] MEDS: Furosemide 20 MG TAB PO SCH (08:19)
[2020-11-15] MEDS: Budesonide 0.5 MG/2 ML NEB NEB SCH ×2 (08:19→21:34)
[2020-11-15] MEDS: REPATHA 140 MG SC SCH (08:28)
[2020-11-15] MEDS: Lorazepam 0.5 MG TAB PO PRN ×2 (13:01→21:43)
[2020-11-15] MEDS: DULoxetine 30 MG CAP PO SCH (21:35)
[2020-11-16] MEDS: Acetaminophen 325 MG TAB PO PRN ×3 (05:29→21:13)
[2020-11-16] MEDS: Levothyroxine Sodium 125 MCG TAB PO SCH (05:30)
[2020-11-16] MEDS: Pramipexole Di-HCl 1 MG TAB PO SCH ×3 (09:07→21:12)
[2020-11-16] MEDS: Polyethylene Glycol 3350 17 GM Packet PO SCH (09:07)
[2020-11-16] MEDS: Apixaban 5 MG TAB PO SCH ×2 (09:08→21:11)
[2020-11-16] MEDS: Aspirin Chewable 81 MG TAB PO SCH (09:08)
[2020-11-16] MEDS: Budesonide 0.5 MG/2 ML NEB NEB SCH ×2 (09:08→21:11)
[2020-11-16] MEDS: Lorazepam 0.5 MG TAB PO PRN ×2 (09:09→14:21)
[2020-11-16] MEDS: Diclofenac 1% 100 GM GEL TP SCH ×3 (09:09→21:12)
[2020-11-16] MEDS: levETIRAcetam 500 MG TAB PO SCH ×2 (09:10→21:12)
[2020-11-16] MEDS: Furosemide 20 MG TAB PO SCH (09:10)
[2020-11-16] MEDS: traMADol HCl 50 MG TAB PO PRN (14:20)
[2020-11-16] MEDS: DULoxetine 30 MG CAP PO SCH (21:12)
[2020-11-17] MEDS: traMADol HCl 50 MG TAB PO PRN ×3 (01:42→20:56)
[2020-11-17 05:51] LABS: Hemoglobin 10.2 g/dL (12.0-16.0); Platelet Count 173 thou/uL (130-400)
[2020-11-17] MEDS: Levothyroxine Sodium 125 MCG TAB PO SCH (06:07)
[2020-11-17] MEDS: Acetaminophen 325 MG TAB PO PRN (07:34)
[2020-11-17] MEDS: Pramipexole Di-HCl 1 MG TAB PO SCH ×3 (08:24→20:55)
[2020-11-17] MEDS: Furosemide 20 MG TAB PO SCH (08:25)
[2020-11-17] MEDS: levETIRAcetam 500 MG TAB PO SCH ×2 (08:25→20:55)
[2020-11-17] MEDS: Budesonide 0.5 MG/2 ML NEB NEB SCH ×2 (08:25→20:54)
[2020-11-17] MEDS: Aspirin Chewable 81 MG TAB PO SCH (08:25)
[2020-11-17] MEDS: Apixaban 5 MG TAB PO SCH ×2 (08:25→20:53)
[2020-11-17] MEDS: Polyethylene Glycol 3350 17 GM Packet PO SCH (08:25)
[2020-11-17] MEDS: Diclofenac 1% 100 GM GEL TP SCH ×3 (09:01→20:56)
[2020-11-17] MEDS: DULoxetine 30 MG CAP PO SCH (20:55)
[2020-11-18] MEDS: traMADol HCl 50 MG TAB PO PRN ×2 (03:31→17:25)
[2020-11-18] MEDS: Levothyroxine Sodium 125 MCG TAB PO SCH (05:12)
[2020-11-18] MEDS: Apixaban 5 MG TAB PO SCH ×2 (08:15→20:24)
[2020-11-18] MEDS: Furosemide 20 MG TAB PO SCH (08:15)
[2020-11-18] MEDS: Aspirin Chewable 81 MG TAB PO SCH (08:15)
[2020-11-18] MEDS: levETIRAcetam 500 MG TAB PO SCH ×2 (08:15→20:24)
[2020-11-18] MEDS: Pramipexole Di-HCl 1 MG TAB PO SCH ×3 (08:15→20:24)
[2020-11-18] MEDS: Polyethylene Glycol 3350 17 GM Packet PO SCH (08:15)
[2020-11-18] MEDS: Budesonide 0.5 MG/2 ML NEB NEB SCH ×2 (08:15→20:24)
[2020-11-18] MEDS: Diclofenac 1% 100 GM GEL TP SCH ×3 (08:17→20:24)
[2020-11-18] MEDS: DULoxetine 30 MG CAP PO SCH (20:24)
[2020-11-18] MEDS: Lorazepam 0.5 MG TAB PO PRN (20:25)
[2020-11-18] MEDS: Acetaminophen 325 MG TAB PO PRN (20:25)
[2020-11-19] MEDS: traMADol HCl 50 MG TAB PO PRN (02:25)
[2020-11-19] MEDS: Levothyroxine Sodium 125 MCG TAB PO SCH (05:32)
[2020-11-19] MEDS: Apixaban 5 MG TAB PO SCH (08:09)
[2020-11-19] MEDS: Aspirin Chewable 81 MG TAB PO SCH (08:09)
[2020-11-19] MEDS: Budesonide 0.5 MG/2 ML NEB NEB SCH (08:10)
[2020-11-19] MEDS: levETIRAcetam 500 MG TAB PO SCH (08:11)
[2020-11-19] MEDS: Lorazepam 0.5 MG TAB PO PRN (08:11)
[2020-11-19] MEDS: Pramipexole Di-HCl 1 MG TAB PO SCH (08:12)
[2020-11-19] MEDS: Furosemide 20 MG TAB PO SCH (08:12)
[2020-11-19] MEDS: Polyethylene Glycol 3350 17 GM Packet PO SCH (08:12)
[2020-11-19] MEDS: Diclofenac 1% 100 GM GEL TP SCH (08:13)
[2020-11-19 09:40] VITALS: BP 125/77; TEMP 98.1
== END 2020-11-19 12:30 | disposition home or self-care (01) | DRG 57 ==
LOC: MADMS 18:58
PROVIDERS: ADMIT Family Medicine; ATTEND Family Medicine
DX: I69.354 Hemiplegia and hemiparesis following cerebral infarction affecting left non-dominant side (principal); J96.11 Chronic respiratory failure with hypoxia; I50.32 Chronic diastolic (congestive) heart failure; I48.20 Chronic atrial fibrillation, unspecified; I13.0 Hypertensive heart and chronic kidney disease with heart failure and stage 1 through stage 4 chronic kidney disease, or unspecified chronic kidney disease; I87.2 Venous insufficiency (chronic) (peripheral); E78.5 Hyperlipidemia, unspecified; I25.10 Atherosclerotic heart disease of native coronary artery without angina pectoris; G40.909 Epilepsy, unspecified, not intractable, without status epilepticus; I27.20 Pulmonary hypertension, unspecified; F32.9 Major depressive disorder, single episode, unspecified; N18.9 Chronic kidney disease, unspecified; D63.8 Anemia in other chronic diseases classified elsewhere; M06.9 Rheumatoid arthritis, unspecified; E66.01 Morbid (severe) obesity due to excess calories; Z90.49 Acquired absence of other specified parts of digestive tract; I69.320 Aphasia following cerebral infarction; Z99.81 Dependence on supplemental oxygen; Z79.01 Long term (current) use of anticoagulants; Z79.82 Long term (current) use of aspirin; Z88.0 Allergy status to penicillin
CPT/HCPCS: 36415; 82565; 85014; 85018; 85049; 94640; J7620; J7626

== ENCOUNTER 2021-03-25 14:29 | Inpatient (IN) | payer MEDICARE, MEDICAID ==
[2021-03-25] MEDS ORDERED: Acetaminophen 325 MG TAB PO PRN ×2 (17:22→19:09)
[2021-03-25] MEDS ORDERED: Ondansetron ODT 4 MG TAB SL PRN (17:26)
[2021-03-25] MEDS: Acetaminophen 325 MG TAB PO SCH ×2 (19:50→21:07)
[2021-03-25] MEDS ORDERED: predniSONE 10 MG TAB PER TUBE SCH (21:00)
[2021-03-25] MEDS: DULoxetine 30 MG CAP PO SCH (21:07)
[2021-03-25] MEDS: Sulfameth/Trimethoprim DS 800-160mg TAB PO SCH (21:07)
[2021-03-25] MEDS: Apixaban 5 MG TAB PO SCH (21:08)
[2021-03-25] MEDS: Pramipexole Di-HCl 1 MG TAB PO SCH (21:08)
[2021-03-25] MEDS: Budesonide 0.5 MG/2 ML NEB NEB SCH (21:10)
[2021-03-25] MEDS: levETIRAcetam 500 MG TAB PO SCH (21:24)
[2021-03-26] MEDS: traMADol HCl 50 MG TAB PO PRN ×2 (02:00→08:10)
[2021-03-26] MEDS: Acetaminophen 325 MG TAB PO SCH ×5 (05:20→22:00)
[2021-03-26] MEDS: Levothyroxine Sodium 125 MCG TAB PO SCH (05:20)
[2021-03-26 05:25] LABS: #Basophils 0.2 thou/uL (0.0-0.2); #Eosinphils 0.6 thou/uL (0.0-0.7); #Lymphocytes 1.6 thou/uL (1.20-3.40); #Monocytes 0.5 thou/uL (0.11-0.59); #Neutrophils 2.7 thou/uL (1.40-6.50); %Basophils 2.7 % (0.0-1.0); %Eosinophils 11.4 % (0.0-10.0); %Lymphocytes 27.9 % (21.0-51.0); %Monocytes 9.6 % (0.0-10.0); %Neutrophils 48.5 % (42.0-75.0); Hemoglobin 11.3 g/dL (12.0-16.0); Mean Corpuscular HGB CONC 32.4 g/dL (32.0-36.0); Mean Corpuscular Hemoglobin 32.4 pg (27.0-31.0); Mean Corpuscular Volume 99.9 fL (78.0-98.0); Mean Platelet Volume 7.1 fL (7.4-10.4); Platelet Count 152 thou/uL (130-400); RBC Distribution Width 13.3 % (11.5-14.5); Red Blood Cell (RBC) Count 3.48 mill/uL (4.20-5.40); White Blood Cell (WBC) Count 5.7 thou/uL (4.8-10.8)
[2021-03-26 05:43] LABS: ALT (SGPT) 14 U/L (8-55); AST (SGOT) 20 U/L (5-34); Albumin 3.5 g/dL (3.4-4.8); Alkaline Phosphatase 53 U/L (40-110); Anion Gap 11 mmol/L (10-20); BUN (Urea Nitrogen) 34 mg/dL (9.8-20.1); Bilirubin, Total 0.2 mg/dL (0.2-1.2); Calc. Creatinine Clearance 55 mL/min (70-130); Calcium 9.8 mg/dL (7.8-10.44); Carbon Dioxide 34 mmol/L (23-31); Chloride 98 mmol/L (98-107); Glucose 90 mg/dL (83-110); Potassium 4.5 mmol/L (3.5-5.1); Protein, Total 6.5 g/dL (5.8-8.1); Sodium 138 mmol/L (136-145)
[2021-03-26] MEDS: Pramipexole Di-HCl 1 MG TAB PO SCH ×3 (08:09→20:50)
[2021-03-26] MEDS: Budesonide 0.5 MG/2 ML NEB NEB SCH ×2 (08:09→20:51)
[2021-03-26] MEDS: Aspirin 81 mg Enteric Coated Tablet PO SCH (08:10)
[2021-03-26] MEDS: levETIRAcetam 500 MG TAB PO SCH ×2 (08:10→20:50)
[2021-03-26] MEDS: Sulfameth/Trimethoprim DS 800-160mg TAB PO SCH ×2 (08:10→20:50)
[2021-03-26] MEDS: Polyethylene Glycol 3350 17 GM Packet PO SCH (08:11)
[2021-03-26] MEDS: Furosemide 20 MG TAB PO SCH (08:11)
[2021-03-26] MEDS: Apixaban 5 MG TAB PO SCH ×2 (08:11→20:51)
[2021-03-26] MEDS ORDERED: Pantoprazole 40 MG GRANULES PACKET PO SCH (09:00)
[2021-03-26 12:40] LABS: SARS-CoV-2 PCR by NAA Not Detected (NotDetected)
[2021-03-26] MEDS: DULoxetine 30 MG CAP PO SCH (20:50)
[2021-03-26] MEDS: Diclofenac 1% 100 GM GEL TP SCH (20:50)
[2021-03-27] MEDS ORDERED: traMADol HCl 50 MG TAB ONE (00:30)
[2021-03-27] MEDS: Acetaminophen 325 MG TAB PO SCH ×5 (06:00→21:55)
[2021-03-27] MEDS: Levothyroxine Sodium 125 MCG TAB PO SCH (06:00)
[2021-03-27] MEDS: Aspirin 81 mg Enteric Coated Tablet PO SCH (08:47)
[2021-03-27] MEDS: Furosemide 20 MG TAB PO SCH (08:47)
[2021-03-27] MEDS: Sulfameth/Trimethoprim DS 800-160mg TAB PO SCH ×2 (08:47→21:56)
[2021-03-27] MEDS: Diclofenac 1% 100 GM GEL TP SCH ×3 (08:47→22:00)
[2021-03-27] MEDS: Apixaban 5 MG TAB PO SCH ×2 (08:47→21:56)
[2021-03-27] MEDS: levETIRAcetam 500 MG TAB PO SCH ×2 (08:48→21:56)
[2021-03-27] MEDS: Polyethylene Glycol 3350 17 GM Packet PO SCH (08:48)
[2021-03-27] MEDS: Pramipexole Di-HCl 1 MG TAB PO SCH ×3 (08:48→21:56)
[2021-03-27] MEDS: Budesonide 0.5 MG/2 ML NEB NEB SCH ×2 (08:48→21:30)
[2021-03-27] MEDS ORDERED: Lorazepam 0.5 MG TAB ONE (20:02)
[2021-03-27] MEDS: DULoxetine 30 MG CAP PO SCH (21:56)
[2021-03-27] MEDS: Lorazepam 0.5 MG TAB PO PRN (21:56)
[2021-03-28] MEDS: Acetaminophen 325 MG TAB PO SCH ×5 (04:42→21:31)
[2021-03-28] MEDS: traMADol HCl 50 MG TAB PO PRN ×2 (04:43→22:49)
[2021-03-28] MEDS: Levothyroxine Sodium 125 MCG TAB PO SCH (04:44)
[2021-03-28] MEDS: levETIRAcetam 500 MG TAB PO SCH ×2 (08:54→21:31)
[2021-03-28] MEDS: Sulfameth/Trimethoprim DS 800-160mg TAB PO SCH ×2 (08:54→21:31)
[2021-03-28] MEDS: Aspirin 81 mg Enteric Coated Tablet PO SCH (08:54)
[2021-03-28] MEDS: Polyethylene Glycol 3350 17 GM Packet PO SCH (08:54)
[2021-03-28] MEDS: Furosemide 20 MG TAB PO SCH (08:54)
[2021-03-28] MEDS: Pramipexole Di-HCl 1 MG TAB PO SCH ×3 (08:54→21:31)
[2021-03-28] MEDS: Apixaban 5 MG TAB PO SCH ×2 (08:54→21:31)
[2021-03-28] MEDS: Budesonide 0.5 MG/2 ML NEB NEB SCH ×2 (08:55→21:39)
[2021-03-28] MEDS: Diclofenac 1% 100 GM GEL TP SCH ×3 (09:18→21:39)
[2021-03-28] MEDS: DULoxetine 30 MG CAP PO SCH (21:31)
[2021-03-29] MEDS: Acetaminophen 325 MG TAB PO SCH ×5 (05:36→23:08)
[2021-03-29] MEDS: Levothyroxine Sodium 125 MCG TAB PO SCH (05:38)
[2021-03-29] MEDS: levETIRAcetam 500 MG TAB PO SCH ×2 (07:58→20:20)
[2021-03-29] MEDS: Pramipexole Di-HCl 1 MG TAB PO SCH ×3 (07:59→20:18)
[2021-03-29] MEDS: Apixaban 5 MG TAB PO SCH ×2 (07:59→20:19)
[2021-03-29] MEDS: Aspirin 81 mg Enteric Coated Tablet PO SCH (07:59)
[2021-03-29] MEDS: Furosemide 20 MG TAB PO SCH (07:59)
[2021-03-29] MEDS: Sulfameth/Trimethoprim DS 800-160mg TAB PO SCH ×2 (07:59→20:20)
[2021-03-29] MEDS: Polyethylene Glycol 3350 17 GM Packet PO SCH (07:59)
[2021-03-29] MEDS: traMADol HCl 50 MG TAB PO PRN ×2 (08:03→20:20)
[2021-03-29] MEDS: Diclofenac 1% 100 GM GEL TP SCH ×3 (08:06→20:22)
[2021-03-29] MEDS: Budesonide 0.5 MG/2 ML NEB NEB SCH ×2 (09:40→20:27)
[2021-03-29] MEDS: DULoxetine 30 MG CAP PO SCH (20:19)
[2021-03-29] MEDS ORDERED: predniSONE 10 MG TAB PER TUBE SCH (21:00)
[2021-03-30] MEDS: Acetaminophen 325 MG TAB PO SCH ×5 (07:21→21:24)
[2021-03-30] MEDS: Levothyroxine Sodium 125 MCG TAB PO SCH (07:22)
[2021-03-30] MEDS: Furosemide 20 MG TAB PO SCH (09:22)
[2021-03-30] MEDS: Pramipexole Di-HCl 1 MG TAB PO SCH ×3 (09:22→21:22)
[2021-03-30] MEDS: Sulfameth/Trimethoprim DS 800-160mg TAB PO SCH ×2 (09:22→21:24)
[2021-03-30] MEDS: Apixaban 5 MG TAB PO SCH ×2 (09:22→21:23)
[2021-03-30] MEDS: Aspirin 81 mg Enteric Coated Tablet PO SCH (09:22)
[2021-03-30] MEDS: Polyethylene Glycol 3350 17 GM Packet PO SCH (09:22)
[2021-03-30] MEDS: Diclofenac 1% 100 GM GEL TP SCH ×3 (09:23→21:25)
[2021-03-30] MEDS: Budesonide 0.5 MG/2 ML NEB NEB SCH ×2 (09:23→21:27)
[2021-03-30] MEDS: levETIRAcetam 500 MG TAB PO SCH ×2 (09:23→21:23)
[2021-03-30] MEDS: Lorazepam 0.5 MG TAB PO PRN (13:46)
[2021-03-30] MEDS: traMADol HCl 50 MG TAB PO PRN (19:33)
[2021-03-30] MEDS: DULoxetine 30 MG CAP PO SCH (21:24)
[2021-03-31] MEDS: traMADol HCl 50 MG TAB PO PRN (03:38)
[2021-03-31] MEDS: Acetaminophen 325 MG TAB PO SCH ×5 (06:09→23:12)
[2021-03-31] MEDS: Levothyroxine Sodium 125 MCG TAB PO SCH (06:10)
[2021-03-31] MEDS: Polyethylene Glycol 3350 17 GM Packet PO SCH (10:03)
[2021-03-31] MEDS: Sulfameth/Trimethoprim DS 800-160mg TAB PO SCH ×2 (10:04→20:33)
[2021-03-31] MEDS: Apixaban 5 MG TAB PO SCH ×2 (10:04→20:33)
[2021-03-31] MEDS: Budesonide 0.5 MG/2 ML NEB NEB SCH ×2 (10:04→20:35)
[2021-03-31] MEDS: levETIRAcetam 500 MG TAB PO SCH ×2 (10:04→20:34)
[2021-03-31] MEDS: Aspirin 81 mg Enteric Coated Tablet PO SCH (10:04)
[2021-03-31] MEDS: Furosemide 20 MG TAB PO SCH (10:04)
[2021-03-31] MEDS: Pramipexole Di-HCl 1 MG TAB PO SCH ×3 (10:04→20:33)
[2021-03-31] MEDS: Diclofenac 1% 100 GM GEL TP SCH ×3 (10:05→20:34)
[2021-03-31] MEDS: DULoxetine 30 MG CAP PO SCH (20:39)
[2021-04-01] MEDS: traMADol HCl 50 MG TAB PO PRN ×2 (02:53→16:18)
[2021-04-01 05:52] LABS: Hemoglobin 11.3 g/dL (12.0-16.0); Platelet Count 161 thou/uL (130-400)
[2021-04-01] MEDS: Levothyroxine Sodium 125 MCG TAB PO SCH (06:14)
[2021-04-01] MEDS: Acetaminophen 325 MG TAB PO SCH ×5 (06:14→21:30)
[2021-04-01] MEDS: LACTAID PO PRN (08:00)
[2021-04-01] MEDS: Aspirin 81 mg Enteric Coated Tablet PO SCH (08:38)
[2021-04-01] MEDS: Sulfameth/Trimethoprim DS 800-160mg TAB PO SCH ×2 (08:38→20:46)
[2021-04-01] MEDS: Furosemide 20 MG TAB PO SCH (08:38)
[2021-04-01] MEDS: Polyethylene Glycol 3350 17 GM Packet PO SCH (08:38)
[2021-04-01] MEDS: Pramipexole Di-HCl 1 MG TAB PO SCH ×3 (08:38→20:46)
[2021-04-01] MEDS: levETIRAcetam 500 MG TAB PO SCH ×2 (08:38→20:45)
[2021-04-01] MEDS: Apixaban 5 MG TAB PO SCH ×2 (08:38→20:44)
[2021-04-01] MEDS: Budesonide 0.5 MG/2 ML NEB NEB SCH ×2 (08:38→20:45)
[2021-04-01] MEDS: Diclofenac 1% 100 GM GEL TP SCH ×3 (08:40→20:45)
[2021-04-01] MEDS: DULoxetine 30 MG CAP PO SCH (20:45)
[2021-04-01 22:32] LABS: SARS-CoV-2 PCR by NAA Not Detected (NotDetected)
[2021-04-02] MEDS: traMADol HCl 50 MG TAB PO PRN (03:02)
[2021-04-02] MEDS: Acetaminophen 325 MG TAB PO SCH ×5 (05:38→22:10)
[2021-04-02] MEDS: Levothyroxine Sodium 125 MCG TAB PO SCH (05:38)
[2021-04-02] MEDS: Budesonide 0.5 MG/2 ML NEB NEB SCH ×2 (08:44→20:32)
[2021-04-02] MEDS: Polyethylene Glycol 3350 17 GM Packet PO SCH (08:44)
[2021-04-02] MEDS: Pramipexole Di-HCl 1 MG TAB PO SCH ×3 (08:44→20:33)
[2021-04-02] MEDS: Apixaban 5 MG TAB PO SCH ×2 (08:44→20:32)
[2021-04-02] MEDS: Furosemide 20 MG TAB PO SCH (08:44)
[2021-04-02] MEDS: Aspirin 81 mg Enteric Coated Tablet PO SCH (08:44)
[2021-04-02] MEDS: levETIRAcetam 500 MG TAB PO SCH ×2 (08:44→20:33)
[2021-04-02] MEDS: Diclofenac 1% 100 GM GEL TP SCH ×3 (08:47→20:32)
[2021-04-02] MEDS: DULoxetine 30 MG CAP PO SCH (20:32)
[2021-04-02] MEDS ORDERED: predniSONE 10 MG TAB PER TUBE SCH (21:00)
[2021-04-03] MEDS: traMADol HCl 50 MG TAB PO PRN (02:00)
[2021-04-03] MEDS: Acetaminophen 325 MG TAB PO SCH ×5 (05:27→21:01)
[2021-04-03] MEDS: Levothyroxine Sodium 125 MCG TAB PO SCH (05:28)
[2021-04-03] MEDS: levETIRAcetam 500 MG TAB PO SCH ×2 (08:46→20:06)
[2021-04-03] MEDS: Pramipexole Di-HCl 1 MG TAB PO SCH ×3 (08:46→20:06)
[2021-04-03] MEDS: Furosemide 20 MG TAB PO SCH (08:46)
[2021-04-03] MEDS: Budesonide 0.5 MG/2 ML NEB NEB SCH ×2 (08:46→20:05)
[2021-04-03] MEDS: Polyethylene Glycol 3350 17 GM Packet PO SCH (08:46)
[2021-04-03] MEDS: Apixaban 5 MG TAB PO SCH ×2 (08:46→20:05)
[2021-04-03] MEDS: Aspirin 81 mg Enteric Coated Tablet PO SCH (08:46)
[2021-04-03] MEDS: Evolocumab [Repatha Syringe] 140 MG/ML Syringe SC SCH ×2 (08:47→12:13)
[2021-04-03] MEDS: Diclofenac 1% 100 GM GEL TP SCH ×3 (10:51→20:06)
[2021-04-03] MEDS: DULoxetine 30 MG CAP PO SCH (20:06)
[2021-04-04] MEDS: traMADol HCl 50 MG TAB PO PRN (00:52)
[2021-04-04] MEDS: Acetaminophen 325 MG TAB PO SCH ×6 (05:30→22:17)
[2021-04-04] MEDS: Levothyroxine Sodium 125 MCG TAB PO SCH (05:31)
[2021-04-04] MEDS: Aspirin 81 mg Enteric Coated Tablet PO SCH (09:21)
[2021-04-04] MEDS: Pramipexole Di-HCl 1 MG TAB PO SCH ×3 (09:21→20:52)
[2021-04-04] MEDS: Apixaban 5 MG TAB PO SCH ×2 (09:21→20:52)
[2021-04-04] MEDS: Furosemide 20 MG TAB PO SCH (09:21)
[2021-04-04] MEDS: Polyethylene Glycol 3350 17 GM Packet PO SCH (09:22)
[2021-04-04] MEDS: Diclofenac 1% 100 GM GEL TP SCH ×3 (09:22→21:00)
[2021-04-04] MEDS: levETIRAcetam 500 MG TAB PO SCH ×2 (09:22→20:53)
[2021-04-04] MEDS: Budesonide 0.5 MG/2 ML NEB NEB SCH ×2 (09:22→20:53)
[2021-04-04] MEDS: DULoxetine 30 MG CAP PO SCH (20:52)
[2021-04-05] MEDS: traMADol HCl 50 MG TAB PO PRN (02:37)
[2021-04-05] MEDS: Levothyroxine Sodium 125 MCG TAB PO SCH ×2 (05:03→05:41)
[2021-04-05] MEDS: Acetaminophen 325 MG TAB PO SCH ×5 (05:03→17:40)
[2021-04-05] MEDS: Apixaban 5 MG TAB PO SCH ×2 (08:20→20:48)
[2021-04-05] MEDS: Pramipexole Di-HCl 1 MG TAB PO SCH ×3 (08:20→20:47)
[2021-04-05] MEDS: Aspirin 81 mg Enteric Coated Tablet PO SCH (08:20)
[2021-04-05] MEDS: Budesonide 0.5 MG/2 ML NEB NEB SCH ×2 (08:20→20:48)
[2021-04-05] MEDS: levETIRAcetam 500 MG TAB PO SCH ×2 (08:20→20:48)
[2021-04-05] MEDS: Furosemide 20 MG TAB PO SCH (08:20)
[2021-04-05] MEDS: Polyethylene Glycol 3350 17 GM Packet PO SCH (08:21)
[2021-04-05] MEDS: Diclofenac 1% 100 GM GEL TP SCH ×3 (08:25→20:50)
[2021-04-05] MEDS: DULoxetine 30 MG CAP PO SCH (20:48)
[2021-04-06] MEDS: Acetaminophen 325 MG TAB PO SCH ×6 (01:05→21:53)
[2021-04-06] MEDS ORDERED: Acetaminophen 325 MG TAB ONE (01:33)
[2021-04-06] MEDS: traMADol HCl 50 MG TAB PO PRN ×3 (01:38→20:39)
[2021-04-06] MEDS: Levothyroxine Sodium 125 MCG TAB PO SCH (05:46)
[2021-04-06] MEDS: levETIRAcetam 500 MG TAB PO SCH ×2 (08:32→20:38)
[2021-04-06] MEDS: Pramipexole Di-HCl 1 MG TAB PO SCH ×3 (08:32→20:37)
[2021-04-06] MEDS: Aspirin 81 mg Enteric Coated Tablet PO SCH (08:33)
[2021-04-06] MEDS: Furosemide 20 MG TAB PO SCH (08:33)
[2021-04-06] MEDS: Apixaban 5 MG TAB PO SCH ×2 (08:33→20:38)
[2021-04-06] MEDS: Polyethylene Glycol 3350 17 GM Packet PO SCH (08:33)
[2021-04-06] MEDS: Budesonide 0.5 MG/2 ML NEB NEB SCH ×2 (08:33→21:52)
[2021-04-06] MEDS: Diclofenac 1% 100 GM GEL TP SCH ×2 (08:36→15:22)
[2021-04-06] MEDS: DULoxetine 30 MG CAP PO SCH (20:38)
[2021-04-06] MEDS ORDERED: predniSONE 10 MG TAB PER TUBE SCH (21:00)
[2021-04-07] MEDS: traMADol HCl 50 MG TAB PO PRN ×2 (05:40→16:31)
[2021-04-07] MEDS: Acetaminophen 325 MG TAB PO SCH ×5 (05:41→21:15)
[2021-04-07] MEDS: Levothyroxine Sodium 125 MCG TAB PO SCH (05:42)
[2021-04-07] MEDS: Diclofenac 1% 100 GM GEL TP SCH ×4 (05:43→20:42)
[2021-04-07] MEDS: LACTAID PO PRN (08:00)
[2021-04-07] MEDS: Apixaban 5 MG TAB PO SCH ×2 (09:02→20:40)
[2021-04-07] MEDS: Aspirin 81 mg Enteric Coated Tablet PO SCH (09:02)
[2021-04-07] MEDS: Furosemide 20 MG TAB PO SCH (09:02)
[2021-04-07] MEDS: levETIRAcetam 500 MG TAB PO SCH ×2 (09:02→20:40)
[2021-04-07] MEDS: Pramipexole Di-HCl 1 MG TAB PO SCH ×3 (09:02→20:39)
[2021-04-07] MEDS: Polyethylene Glycol 3350 17 GM Packet PO SCH (09:05)
[2021-04-07] MEDS: Budesonide 0.5 MG/2 ML NEB NEB SCH ×2 (09:08→20:42)
[2021-04-07] MEDS: DULoxetine 30 MG CAP PO SCH (20:40)
[2021-04-08] MEDS: traMADol HCl 50 MG TAB PO PRN ×3 (04:16→17:06)
[2021-04-08] MEDS: Acetaminophen 325 MG TAB PO SCH ×5 (05:45→21:16)
[2021-04-08] MEDS: Levothyroxine Sodium 125 MCG TAB PO SCH (05:45)
[2021-04-08] MEDS: Budesonide 0.5 MG/2 ML NEB NEB SCH ×2 (08:48→21:17)
[2021-04-08] MEDS: Furosemide 20 MG TAB PO SCH (08:48)
[2021-04-08] MEDS: Pramipexole Di-HCl 1 MG TAB PO SCH ×3 (08:48→21:15)
[2021-04-08] MEDS: Polyethylene Glycol 3350 17 GM Packet PO SCH (08:48)
[2021-04-08] MEDS: Aspirin 81 mg Enteric Coated Tablet PO SCH (08:49)
[2021-04-08] MEDS: Apixaban 5 MG TAB PO SCH ×2 (08:49→21:17)
[2021-04-08] MEDS: Diclofenac 1% 100 GM GEL TP SCH ×3 (08:50→21:20)
[2021-04-08] MEDS: levETIRAcetam 500 MG TAB PO SCH ×2 (08:55→21:16)
[2021-04-08] MEDS: DULoxetine 30 MG CAP PO SCH (21:17)
[2021-04-09] MEDS: traMADol HCl 50 MG TAB PO PRN ×3 (02:31→14:21)
[2021-04-09] MEDS: Acetaminophen 325 MG TAB PO SCH ×5 (05:14→20:24)
[2021-04-09] MEDS: Levothyroxine Sodium 125 MCG TAB PO SCH (05:15)
[2021-04-09 05:46] LABS: Hemoglobin 10.3 g/dL (12.0-16.0); Platelet Count 149 thou/uL (130-400)
[2021-04-09] MEDS: Polyethylene Glycol 3350 17 GM Packet PO SCH (08:58)
[2021-04-09] MEDS: Apixaban 5 MG TAB PO SCH ×2 (08:58→20:24)
[2021-04-09] MEDS: Aspirin 81 mg Enteric Coated Tablet PO SCH (08:58)
[2021-04-09] MEDS: Pramipexole Di-HCl 1 MG TAB PO SCH ×3 (08:58→20:24)
[2021-04-09] MEDS: Budesonide 0.5 MG/2 ML NEB NEB SCH ×2 (08:58→20:31)
[2021-04-09] MEDS: Diclofenac 1% 100 GM GEL TP SCH ×3 (08:58→20:31)
[2021-04-09] MEDS: levETIRAcetam 500 MG TAB PO SCH ×2 (08:58→20:25)
[2021-04-09] MEDS: Furosemide 20 MG TAB PO SCH (08:58)
[2021-04-09 15:26] LABS: SARS-CoV-2 PCR by NAA Not Detected (NotDetected)
[2021-04-09] MEDS: DULoxetine 30 MG CAP PO SCH (20:26)
[2021-04-10] MEDS: traMADol HCl 50 MG TAB PO PRN ×2 (01:18→15:17)
[2021-04-10] MEDS: Acetaminophen 325 MG TAB PO SCH ×5 (05:28→22:24)
[2021-04-10] MEDS: Levothyroxine Sodium 125 MCG TAB PO SCH (05:28)
[2021-04-10] MEDS: predniSONE 20 MG TAB PO SCH (09:23)
[2021-04-10] MEDS: levETIRAcetam 500 MG TAB PO SCH ×2 (09:23→20:22)
[2021-04-10] MEDS: Apixaban 5 MG TAB PO SCH ×2 (09:23→20:20)
[2021-04-10] MEDS: Furosemide 20 MG TAB PO SCH (09:23)
[2021-04-10] MEDS: Aspirin 81 mg Enteric Coated Tablet PO SCH (09:23)
[2021-04-10] MEDS: Pramipexole Di-HCl 1 MG TAB PO SCH ×3 (09:24→20:23)
[2021-04-10] MEDS: Budesonide 0.5 MG/2 ML NEB NEB SCH ×2 (09:24→20:21)
[2021-04-10] MEDS: Polyethylene Glycol 3350 17 GM Packet PO SCH (09:24)
[2021-04-10] MEDS: Diclofenac 1% 100 GM GEL TP SCH ×3 (09:24→20:21)
[2021-04-10] MEDS: Lorazepam 0.5 MG TAB PO PRN (15:17)
[2021-04-10] MEDS: DULoxetine 30 MG CAP PO SCH (20:22)
[2021-04-11] MEDS: Acetaminophen 325 MG TAB PO SCH ×5 (05:14→21:53)
[2021-04-11] MEDS: Levothyroxine Sodium 125 MCG TAB PO SCH (05:14)
[2021-04-11] MEDS: Furosemide 20 MG TAB PO SCH (08:00)
[2021-04-11] MEDS: levETIRAcetam 500 MG TAB PO SCH ×2 (08:00→21:23)
[2021-04-11] MEDS: Budesonide 0.5 MG/2 ML NEB NEB SCH ×2 (08:00→21:23)
[2021-04-11] MEDS: Apixaban 5 MG TAB PO SCH ×2 (08:00→21:22)
[2021-04-11] MEDS: Pramipexole Di-HCl 1 MG TAB PO SCH ×3 (08:00→21:21)
[2021-04-11] MEDS: predniSONE 20 MG TAB PO SCH (08:00)
[2021-04-11] MEDS: Aspirin 81 mg Enteric Coated Tablet PO SCH (08:00)
[2021-04-11] MEDS: Polyethylene Glycol 3350 17 GM Packet PO SCH (08:00)
[2021-04-11] MEDS: Diclofenac 1% 100 GM GEL TP SCH ×3 (08:02→21:27)
[2021-04-11] MEDS: traMADol HCl 50 MG TAB PO PRN (12:40)
[2021-04-11] MEDS ORDERED: Nitroglycerin 0.4 MG TAB (25 Tab Bottle) ONE (21:08)
[2021-04-11] MEDS ORDERED: Nitroglycerin 0.4 MG TAB (25 Tab Bottle) SL PRN (21:13)
[2021-04-11] MEDS: DULoxetine 30 MG CAP PO SCH (21:22)
[2021-04-12] MEDS: Lorazepam 0.5 MG TAB PO PRN (00:45)
[2021-04-12] MEDS: traMADol HCl 50 MG TAB PO PRN (04:07)
[2021-04-12] MEDS: Acetaminophen 325 MG TAB PO SCH ×5 (06:05→21:34)
[2021-04-12] MEDS: Levothyroxine Sodium 125 MCG TAB PO SCH (06:06)
[2021-04-12] MEDS: Pramipexole Di-HCl 1 MG TAB PO SCH ×3 (08:56→20:38)
[2021-04-12] MEDS: Polyethylene Glycol 3350 17 GM Packet PO SCH (08:56)
[2021-04-12] MEDS: predniSONE 20 MG TAB PO SCH (08:56)
[2021-04-12] MEDS: levETIRAcetam 500 MG TAB PO SCH ×2 (08:56→20:41)
[2021-04-12] MEDS: Aspirin 81 mg Enteric Coated Tablet PO SCH (08:56)
[2021-04-12] MEDS: Furosemide 20 MG TAB PO SCH (08:57)
[2021-04-12] MEDS: Apixaban 5 MG TAB PO SCH ×2 (08:57→20:39)
[2021-04-12] MEDS: Budesonide 0.5 MG/2 ML NEB NEB SCH ×2 (08:57→20:41)
[2021-04-12] MEDS: Diclofenac 1% 100 GM GEL TP SCH ×3 (08:58→20:43)
[2021-04-12] MEDS: DULoxetine 30 MG CAP PO SCH (20:40)
[2021-04-13] MEDS: traMADol HCl 50 MG TAB PO PRN ×2 (03:21→19:34)
[2021-04-13] MEDS: Lorazepam 0.5 MG TAB PO PRN ×2 (04:18→15:31)
[2021-04-13] MEDS: Acetaminophen 325 MG TAB PO SCH ×5 (05:44→21:02)
[2021-04-13] MEDS: Levothyroxine Sodium 125 MCG TAB PO SCH (05:45)
[2021-04-13] MEDS: Budesonide 0.5 MG/2 ML NEB NEB SCH ×2 (08:46→21:05)
[2021-04-13] MEDS: levETIRAcetam 500 MG TAB PO SCH ×2 (08:47→21:03)
[2021-04-13] MEDS: Polyethylene Glycol 3350 17 GM Packet PO SCH (08:47)
[2021-04-13] MEDS: Aspirin 81 mg Enteric Coated Tablet PO SCH (08:47)
[2021-04-13] MEDS: predniSONE 20 MG TAB PO SCH (08:47)
[2021-04-13] MEDS: Apixaban 5 MG TAB PO SCH ×2 (08:47→21:04)
[2021-04-13] MEDS: Pramipexole Di-HCl 1 MG TAB PO SCH ×3 (08:47→21:04)
[2021-04-13] MEDS: Furosemide 20 MG TAB PO SCH (08:47)
[2021-04-13] MEDS: Diclofenac 1% 100 GM GEL TP SCH ×3 (08:48→21:07)
[2021-04-13] MEDS: DULoxetine 30 MG CAP PO SCH (21:04)
[2021-04-14] MEDS: traMADol HCl 50 MG TAB PO PRN ×3 (01:57→19:25)
[2021-04-14] MEDS: Acetaminophen 325 MG TAB PO SCH ×5 (05:36→20:53)
[2021-04-14] MEDS: Levothyroxine Sodium 125 MCG TAB PO SCH (05:37)
[2021-04-14] MEDS: Pramipexole Di-HCl 1 MG TAB PO SCH ×3 (08:42→20:53)
[2021-04-14] MEDS: levETIRAcetam 500 MG TAB PO SCH ×2 (08:42→20:53)
[2021-04-14] MEDS: predniSONE 20 MG TAB PO SCH (08:43)
[2021-04-14] MEDS: Aspirin 81 mg Enteric Coated Tablet PO SCH (08:43)
[2021-04-14] MEDS: Budesonide 0.5 MG/2 ML NEB NEB SCH ×2 (08:43→20:52)
[2021-04-14] MEDS: Apixaban 5 MG TAB PO SCH ×2 (08:43→20:53)
[2021-04-14] MEDS: Furosemide 20 MG TAB PO SCH (08:43)
[2021-04-14] MEDS: Diclofenac 1% 100 GM GEL TP SCH ×3 (08:43→20:54)
[2021-04-14] MEDS: Polyethylene Glycol 3350 17 GM Packet PO SCH (08:44)
[2021-04-14] MEDS: DULoxetine 30 MG CAP PO SCH (20:53)
[2021-04-15] MEDS: traMADol HCl 50 MG TAB PO PRN ×3 (02:14→23:49)
[2021-04-15] MEDS: Acetaminophen 325 MG TAB PO SCH ×5 (06:21→21:00)
[2021-04-15] MEDS: Levothyroxine Sodium 125 MCG TAB PO SCH (06:23)
[2021-04-15] MEDS: Diclofenac 1% 100 GM GEL TP SCH ×3 (08:17→20:57)
[2021-04-15] MEDS: predniSONE 20 MG TAB PO SCH (08:18)
[2021-04-15] MEDS: Apixaban 5 MG TAB PO SCH ×2 (08:18→20:56)
[2021-04-15] MEDS: Budesonide 0.5 MG/2 ML NEB NEB SCH ×2 (08:18→20:56)
[2021-04-15] MEDS: Pramipexole Di-HCl 1 MG TAB PO SCH ×3 (08:18→20:55)
[2021-04-15] MEDS: Polyethylene Glycol 3350 17 GM Packet PO SCH (08:18)
[2021-04-15] MEDS: Aspirin 81 mg Enteric Coated Tablet PO SCH (08:19)
[2021-04-15] MEDS: Furosemide 20 MG TAB PO SCH (08:19)
[2021-04-15] MEDS: levETIRAcetam 500 MG TAB PO SCH ×2 (08:19→20:56)
[2021-04-15] MEDS: DULoxetine 30 MG CAP PO SCH (20:56)
[2021-04-16] MEDS: Lorazepam 0.5 MG TAB PO PRN (01:07)
[2021-04-16 05:29] LABS: Platelet Count 177 thou/uL (130-400)
[2021-04-16] MEDS: Levothyroxine Sodium 125 MCG TAB PO SCH (05:33)
[2021-04-16] MEDS: Acetaminophen 325 MG TAB PO SCH ×5 (05:33→20:26)
[2021-04-16] MEDS: traMADol HCl 50 MG TAB PO PRN (08:56)
[2021-04-16] MEDS: Apixaban 5 MG TAB PO SCH ×2 (08:57→20:28)
[2021-04-16] MEDS: levETIRAcetam 500 MG TAB PO SCH ×2 (08:57→20:28)
[2021-04-16] MEDS: predniSONE 20 MG TAB PO SCH (08:57)
[2021-04-16] MEDS: Aspirin 81 mg Enteric Coated Tablet PO SCH (08:57)
[2021-04-16] MEDS: Furosemide 20 MG TAB PO SCH (08:58)
[2021-04-16] MEDS: Pramipexole Di-HCl 1 MG TAB PO SCH ×4 (08:58→20:27)
[2021-04-16] MEDS: Budesonide 0.5 MG/2 ML NEB NEB SCH ×2 (08:58→20:30)
[2021-04-16] MEDS: Polyethylene Glycol 3350 17 GM Packet PO SCH (08:59)
[2021-04-16] MEDS: Diclofenac 1% 100 GM GEL TP SCH ×3 (08:59→20:28)
[2021-04-16] MEDS: DULoxetine 30 MG CAP PO SCH (20:31)
[2021-04-16] MEDS: Nitroglycerin 0.4 MG TAB (25 Tab Bottle) SL PRN ×2 (23:35→23:43)
[2021-04-17] MEDS: traMADol HCl 50 MG TAB PO PRN ×3 (02:23→17:13)
[2021-04-17] MEDS: Acetaminophen 325 MG TAB PO SCH ×5 (05:26→21:18)
[2021-04-17] MEDS: Levothyroxine Sodium 125 MCG TAB PO SCH (05:27)
[2021-04-17] MEDS ORDERED: predniSONE 20 MG TAB PO SCH (08:09)
[2021-04-17] MEDS: predniSONE 5 MG TAB PO SCH (09:15)
[2021-04-17] MEDS: Aspirin 81 mg Enteric Coated Tablet PO SCH (09:16)
[2021-04-17] MEDS: Pramipexole Di-HCl 1 MG TAB PO SCH ×3 (09:17→21:08)
[2021-04-17] MEDS: Budesonide 0.5 MG/2 ML NEB NEB SCH ×2 (09:17→21:18)
[2021-04-17] MEDS: Apixaban 5 MG TAB PO SCH ×2 (09:17→21:09)
[2021-04-17] MEDS: Evolocumab [Repatha Syringe] 140 MG/ML Syringe SC SCH (09:17)
[2021-04-17] MEDS: levETIRAcetam 500 MG TAB PO SCH ×2 (09:17→21:08)
[2021-04-17] MEDS: Diclofenac 1% 100 GM GEL TP SCH ×3 (09:17→21:00)
[2021-04-17] MEDS: Furosemide 20 MG TAB PO SCH (09:17)
[2021-04-17] MEDS: Polyethylene Glycol 3350 17 GM Packet PO SCH (09:17)
[2021-04-17] MEDS: predniSONE 20 MG TAB PO SCH (13:56)
[2021-04-17] MEDS: DULoxetine 30 MG CAP PO SCH (21:24)
[2021-04-18] MEDS: traMADol HCl 50 MG TAB PO PRN ×2 (00:18→21:07)
[2021-04-18] MEDS: Acetaminophen 325 MG TAB PO SCH ×5 (05:13→21:06)
[2021-04-18] MEDS: Levothyroxine Sodium 125 MCG TAB PO SCH (05:14)
[2021-04-18] MEDS: predniSONE 5 MG TAB PO SCH (08:38)
[2021-04-18] MEDS: Polyethylene Glycol 3350 17 GM Packet PO SCH (08:38)
[2021-04-18] MEDS: Budesonide 0.5 MG/2 ML NEB NEB SCH ×2 (08:38→20:01)
[2021-04-18] MEDS: levETIRAcetam 500 MG TAB PO SCH ×2 (08:39→20:02)
[2021-04-18] MEDS: Pramipexole Di-HCl 1 MG TAB PO SCH ×3 (08:39→20:04)
[2021-04-18] MEDS: Aspirin 81 mg Enteric Coated Tablet PO SCH (08:39)
[2021-04-18] MEDS: Furosemide 20 MG TAB PO SCH (08:39)
[2021-04-18] MEDS: Apixaban 5 MG TAB PO SCH ×2 (08:39→20:02)
[2021-04-18] MEDS: Diclofenac 1% 100 GM GEL TP SCH ×3 (08:54→20:02)
[2021-04-18 14:55] LABS: SARS-CoV-2 PCR by NAA Not Detected (NotDetected)
[2021-04-18] MEDS ORDERED: FLU VACC QS2021-22(65YR UP)/PF 240 MCG/0.7 ML SYRINGE IM ONE (16:00)
[2021-04-18] MEDS: DULoxetine 30 MG CAP PO SCH (20:02)
[2021-04-19] MEDS: traMADol HCl 50 MG TAB PO PRN (03:22)
[2021-04-19] MEDS: Acetaminophen 325 MG TAB PO SCH ×5 (05:31→21:05)
[2021-04-19] MEDS: Levothyroxine Sodium 125 MCG TAB PO SCH (05:31)
[2021-04-19] MEDS: Furosemide 20 MG TAB PO SCH (09:47)
[2021-04-19] MEDS: Budesonide 0.5 MG/2 ML NEB NEB SCH ×2 (09:47→21:06)
[2021-04-19] MEDS: predniSONE 5 MG TAB PO SCH (09:47)
[2021-04-19] MEDS: Aspirin 81 mg Enteric Coated Tablet PO SCH (09:47)
[2021-04-19] MEDS: Pramipexole Di-HCl 1 MG TAB PO SCH ×3 (09:47→21:07)
[2021-04-19] MEDS: Apixaban 5 MG TAB PO SCH ×2 (09:48→21:06)
[2021-04-19] MEDS: Polyethylene Glycol 3350 17 GM Packet PO SCH (09:48)
[2021-04-19] MEDS: levETIRAcetam 500 MG TAB PO SCH ×2 (09:48→21:07)
[2021-04-19] MEDS: Diclofenac 1% 100 GM GEL TP SCH ×3 (09:48→21:06)
[2021-04-19] MEDS: DULoxetine 30 MG CAP PO SCH (21:07)
[2021-04-19] MEDS: Lorazepam 0.5 MG TAB PO PRN (21:08)
[2021-04-19] MEDS: LACTAID PO PRN (21:08)
[2021-04-20] MEDS: traMADol HCl 50 MG TAB PO PRN ×2 (03:07→11:21)
[2021-04-20] MEDS: Levothyroxine Sodium 125 MCG TAB PO SCH (05:48)
[2021-04-20] MEDS: Acetaminophen 325 MG TAB PO SCH ×5 (05:48→20:47)
[2021-04-20] MEDS: Polyethylene Glycol 3350 17 GM Packet PO SCH (09:10)
[2021-04-20] MEDS: Furosemide 20 MG TAB PO SCH (09:13)
[2021-04-20] MEDS: Apixaban 5 MG TAB PO SCH ×2 (09:13→20:46)
[2021-04-20] MEDS: predniSONE 5 MG TAB PO SCH (09:13)
[2021-04-20] MEDS: levETIRAcetam 500 MG TAB PO SCH ×2 (09:13→20:46)
[2021-04-20] MEDS: Pramipexole Di-HCl 1 MG TAB PO SCH ×3 (09:13→20:46)
[2021-04-20] MEDS: Budesonide 0.5 MG/2 ML NEB NEB SCH ×2 (09:14→20:46)
[2021-04-20] MEDS: Aspirin 81 mg Enteric Coated Tablet PO SCH (09:14)
[2021-04-20] MEDS: Diclofenac 1% 100 GM GEL TP SCH ×3 (09:15→20:47)
[2021-04-20] MEDS: DULoxetine 30 MG CAP PO SCH (20:46)
[2021-04-20] MEDS: Lorazepam 0.5 MG TAB PO PRN (20:46)
[2021-04-21] MEDS: traMADol HCl 50 MG TAB PO PRN ×2 (01:39→20:30)
[2021-04-21] MEDS: Acetaminophen 325 MG TAB PO SCH ×5 (05:56→21:21)
[2021-04-21] MEDS: Levothyroxine Sodium 125 MCG TAB PO SCH (05:56)
[2021-04-21] MEDS: LACTAID PO PRN ×2 (08:45→20:24)
[2021-04-21] MEDS: Polyethylene Glycol 3350 17 GM Packet PO SCH (08:46)
[2021-04-21] MEDS: Pramipexole Di-HCl 1 MG TAB PO SCH ×3 (08:46→20:22)
[2021-04-21] MEDS: Budesonide 0.5 MG/2 ML NEB NEB SCH ×2 (08:46→20:23)
[2021-04-21] MEDS: predniSONE 5 MG TAB PO SCH (08:47)
[2021-04-21] MEDS: levETIRAcetam 500 MG TAB PO SCH ×2 (08:47→20:23)
[2021-04-21] MEDS: Furosemide 20 MG TAB PO SCH (08:47)
[2021-04-21] MEDS: Aspirin 81 mg Enteric Coated Tablet PO SCH (08:47)
[2021-04-21] MEDS: Apixaban 5 MG TAB PO SCH ×2 (08:47→20:23)
[2021-04-21] MEDS: Diclofenac 1% 100 GM GEL TP SCH ×3 (08:48→20:32)
[2021-04-21] MEDS: DULoxetine 30 MG CAP PO SCH (20:23)
[2021-04-22] MEDS: Lorazepam 0.5 MG TAB PO PRN ×3 (01:39→20:15)
[2021-04-22] MEDS: traMADol HCl 50 MG TAB PO PRN (05:24)
[2021-04-22] MEDS: Levothyroxine Sodium 125 MCG TAB PO SCH (05:25)
[2021-04-22] MEDS: Acetaminophen 325 MG TAB PO SCH ×5 (05:25→20:16)
[2021-04-22] MEDS: Polyethylene Glycol 3350 17 GM Packet PO SCH (08:14)
[2021-04-22] MEDS: Apixaban 5 MG TAB PO SCH ×2 (08:14→20:12)
[2021-04-22] MEDS: Pramipexole Di-HCl 1 MG TAB PO SCH ×3 (08:14→20:12)
[2021-04-22] MEDS: predniSONE 5 MG TAB PO SCH (08:15)
[2021-04-22] MEDS: levETIRAcetam 500 MG TAB PO SCH ×2 (08:15→20:12)
[2021-04-22] MEDS: Budesonide 0.5 MG/2 ML NEB NEB SCH ×2 (08:15→20:13)
[2021-04-22] MEDS: Furosemide 20 MG TAB PO SCH (08:15)
[2021-04-22] MEDS: Diclofenac 1% 100 GM GEL TP SCH ×3 (08:15→20:13)
[2021-04-22] MEDS: Aspirin 81 mg Enteric Coated Tablet PO SCH (08:15)
[2021-04-22 10:42] VITALS: BMI 34.6
[2021-04-22] MEDS: DULoxetine 30 MG CAP PO SCH (20:12)
[2021-04-23] MEDS: Lorazepam 0.5 MG TAB PO PRN ×2 (00:56→21:13)
[2021-04-23] MEDS: Acetaminophen 325 MG TAB PO SCH ×5 (05:56→21:11)
[2021-04-23] MEDS: Levothyroxine Sodium 125 MCG TAB PO SCH (05:56)
[2021-04-23] MEDS: Polyethylene Glycol 3350 17 GM Packet PO SCH (08:37)
[2021-04-23] MEDS: Furosemide 20 MG TAB PO SCH (08:39)
[2021-04-23] MEDS: Aspirin 81 mg Enteric Coated Tablet PO SCH (08:39)
[2021-04-23] MEDS: Pramipexole Di-HCl 1 MG TAB PO SCH ×3 (08:39→21:13)
[2021-04-23] MEDS: predniSONE 10 MG TAB PO SCH (08:39)
[2021-04-23] MEDS: Apixaban 5 MG TAB PO SCH ×2 (08:39→21:12)
[2021-04-23] MEDS: levETIRAcetam 500 MG TAB PO SCH ×2 (08:39→21:13)
[2021-04-23] MEDS: Budesonide 0.5 MG/2 ML NEB NEB SCH ×2 (08:40→21:12)
[2021-04-23] MEDS: Diclofenac 1% 100 GM GEL TP SCH ×3 (08:40→21:12)
[2021-04-23] MEDS: DULoxetine 30 MG CAP PO SCH (21:12)
[2021-04-24] MEDS: traMADol HCl 50 MG TAB PO PRN ×3 (03:10→15:33)
[2021-04-24 05:25] LABS: Hemoglobin 11.1 g/dL (12.0-16.0); Platelet Count 186 thou/uL (130-400)
[2021-04-24] MEDS: Levothyroxine Sodium 125 MCG TAB PO SCH (05:48)
[2021-04-24] MEDS: Acetaminophen 325 MG TAB PO SCH ×5 (05:48→20:59)
[2021-04-24] MEDS: Aspirin 81 mg Enteric Coated Tablet PO SCH (08:57)
[2021-04-24] MEDS: Pramipexole Di-HCl 1 MG TAB PO SCH ×3 (08:57→20:57)
[2021-04-24] MEDS: Polyethylene Glycol 3350 17 GM Packet PO SCH (08:57)
[2021-04-24] MEDS: predniSONE 10 MG TAB PO SCH (08:58)
[2021-04-24] MEDS: Furosemide 20 MG TAB PO SCH (08:58)
[2021-04-24] MEDS: Apixaban 5 MG TAB PO SCH ×2 (08:58→20:58)
[2021-04-24] MEDS: levETIRAcetam 500 MG TAB PO SCH ×2 (08:58→20:58)
[2021-04-24] MEDS: Budesonide 0.5 MG/2 ML NEB NEB SCH ×2 (09:01→20:57)
[2021-04-24] MEDS: Diclofenac 1% 100 GM GEL TP SCH ×3 (10:00→21:01)
[2021-04-24] MEDS: Lorazepam 0.5 MG TAB PO PRN (20:57)
[2021-04-24] MEDS: DULoxetine 30 MG CAP PO SCH (20:58)
[2021-04-25] MEDS: Acetaminophen 325 MG TAB PO SCH ×5 (06:01→20:53)
[2021-04-25] MEDS: Levothyroxine Sodium 125 MCG TAB PO SCH (06:01)
[2021-04-25] MEDS: Pramipexole Di-HCl 1 MG TAB PO SCH ×3 (08:24→20:55)
[2021-04-25] MEDS: Budesonide 0.5 MG/2 ML NEB NEB SCH ×2 (08:24→20:55)
[2021-04-25] MEDS: Polyethylene Glycol 3350 17 GM Packet PO SCH (08:24)
[2021-04-25] MEDS: traMADol HCl 50 MG TAB PO PRN (08:25)
[2021-04-25] MEDS: Aspirin 81 mg Enteric Coated Tablet PO SCH (08:25)
[2021-04-25] MEDS: Apixaban 5 MG TAB PO SCH ×2 (08:25→20:53)
[2021-04-25] MEDS: levETIRAcetam 500 MG TAB PO SCH ×2 (08:25→20:55)
[2021-04-25] MEDS: Furosemide 20 MG TAB PO SCH (08:25)
[2021-04-25] MEDS: predniSONE 10 MG TAB PO SCH (08:25)
[2021-04-25] MEDS: Diclofenac 1% 100 GM GEL TP SCH ×3 (08:26→20:54)
[2021-04-25] MEDS: DULoxetine 30 MG CAP PO SCH (20:54)
[2021-04-26] MEDS: traMADol HCl 50 MG TAB PO PRN (01:23)
[2021-04-26] MEDS: Lorazepam 0.5 MG TAB PO PRN (01:26)
[2021-04-26] MEDS: Acetaminophen 325 MG TAB PO SCH ×3 (05:43→13:27)
[2021-04-26] MEDS: Levothyroxine Sodium 125 MCG TAB PO SCH (05:43)
[2021-04-26 07:35] VITALS: BP 167/88; TEMP 97
[2021-04-26] MEDS: predniSONE 10 MG TAB PO SCH (08:31)
[2021-04-26] MEDS: Apixaban 5 MG TAB PO SCH (08:31)
[2021-04-26] MEDS: levETIRAcetam 500 MG TAB PO SCH (08:32)
[2021-04-26] MEDS: Pramipexole Di-HCl 1 MG TAB PO SCH (08:32)
[2021-04-26] MEDS: Furosemide 20 MG TAB PO SCH (08:32)
[2021-04-26] MEDS: Polyethylene Glycol 3350 17 GM Packet PO SCH (08:32)
[2021-04-26] MEDS: Budesonide 0.5 MG/2 ML NEB NEB SCH (08:32)
[2021-04-26] MEDS: Aspirin 81 mg Enteric Coated Tablet PO SCH (08:32)
[2021-04-26] MEDS: Diclofenac 1% 100 GM GEL TP SCH (08:37)
== END 2021-04-26 14:45 | disposition home health service (06) | DRG 57 ==
LOC: MADMS 14:29
PROVIDERS: ADMIT Family Medicine; ATTEND Family Medicine
DX: I69.354 Hemiplegia and hemiparesis following cerebral infarction affecting left non-dominant side (principal); I48.20 Chronic atrial fibrillation, unspecified; I50.32 Chronic diastolic (congestive) heart failure; J96.11 Chronic respiratory failure with hypoxia; N39.0 Urinary tract infection, site not specified; G40.909 Epilepsy, unspecified, not intractable, without status epilepticus; I27.20 Pulmonary hypertension, unspecified; M06.9 Rheumatoid arthritis, unspecified; F32.9 Major depressive disorder, single episode, unspecified; N18.9 Chronic kidney disease, unspecified; E73.9 Lactose intolerance, unspecified; M17.0 Bilateral primary osteoarthritis of knee; Z20.822 Contact with and (suspected) exposure to COVID-19; E78.5 Hyperlipidemia, unspecified; I25.119 Atherosclerotic heart disease of native coronary artery with unspecified angina pectoris; I87.2 Venous insufficiency (chronic) (peripheral); R51.9 Headache, unspecified; Z79.01 Long term (current) use of anticoagulants; Z99.81 Dependence on supplemental oxygen; Z90.49 Acquired absence of other specified parts of digestive tract; Z90.89 Acquired absence of other organs; Z79.82 Long term (current) use of aspirin; Z79.899 Other long term (current) drug therapy; Z88.1 Allergy status to other antibiotic agents; Z88.0 Allergy status to penicillin; Z88.5 Allergy status to narcotic agent; Z88.8 Allergy status to other drugs, medicaments and biological substances; Z74.01 Bed confinement status
CPT/HCPCS: 36415; 80053; 82565; 85014; 85018; 85025; 85049; 90471; 90662; G0008; J7512; J7620; J7626; U0003; U0005

== ENCOUNTER 2021-09-03 16:07 | Inpatient (IN) | payer MEDICARE, MEDICAID ==
[2021-09-03] MEDS ORDERED: levETIRAcetam 500 MG TAB PO SCH (21:00)
[2021-09-03] MEDS: Budesonide 0.5 MG/2 ML NEB NEB SCH (21:55)
[2021-09-03] MEDS: Carvedilol 6.25 MG TAB PO SCH (21:58)
[2021-09-03] MEDS: Apixaban 5 MG TAB PO SCH (21:58)
[2021-09-03] MEDS: Lorazepam 0.5 MG TAB PO SCH (21:58)
[2021-09-03] MEDS: Diclofenac 1% 100 GM GEL TOP SCH (21:59)
[2021-09-03] MEDS: Pramipexole Di-HCl 1 MG TAB PO SCH (21:59)
[2021-09-03] MEDS: Sacubitril 49 MG/Valsartan 51 MG TABLET PO SCH (21:59)
[2021-09-03] MEDS: DULoxetine 30 MG CAP PO SCH (21:59)
[2021-09-03] MEDS: Acetaminophen 325 MG TAB PO SCH (22:00)
[2021-09-04] MEDS: Acetaminophen 325 MG TAB PO SCH ×5 (05:20→22:06)
[2021-09-04] MEDS: Levothyroxine Sodium 125 MCG TAB PO SCH (05:21)
[2021-09-04 05:22] LABS: #Basophils 0.1 thou/uL (0.0-0.2); #Eosinphils 0.5 thou/uL (0.0-0.7); #Lymphocytes 4.5 thou/uL (1.20-3.40); #Monocytes 0.7 thou/uL (0.11-0.59); #Neutrophils 3.5 thou/uL (1.40-6.50); %Basophils 1.2 % (0.0-1.0); %Eosinophils 5.9 % (0.0-10.0); %Lymphocytes 48.1 % (21.0-51.0); %Monocytes 7.6 % (0.0-10.0); %Neutrophils 37.3 % (42.0-75.0); Mean Corpuscular HGB CONC 32.3 g/dL (32.0-36.0); Mean Corpuscular Hemoglobin 31.5 pg (27.0-31.0); Mean Corpuscular Volume 97.3 fL (78.0-98.0); Mean Platelet Volume 8.3 fL (7.4-10.4); Platelet Count 172 thou/uL (130-400); RBC Distribution Width 12.3 % (11.5-14.5); Red Blood Cell (RBC) Count 4.13 mill/uL (4.20-5.40); White Blood Cell (WBC) Count 9.4 thou/uL (4.8-10.8)
[2021-09-04 05:37] LABS: ALT (SGPT) 9 U/L (8-55); AST (SGOT) 19 U/L (5-34); Albumin 3.7 g/dL (3.4-4.8); Alkaline Phosphatase 45 U/L (40-110); Anion Gap 13 mmol/L (10-20); BUN (Urea Nitrogen) 21 mg/dL (9.8-20.1); Bilirubin, Total 0.7 mg/dL (0.2-1.2); Calc. Creatinine Clearance 70 mL/min (70-130); Carbon Dioxide 34 mmol/L (23-31); Chloride 98 mmol/L (98-107); Globulin 2.9 g/dL (2.4-3.5); Glucose 86 mg/dL (83-110); Potassium 4.9 mmol/L (3.5-5.1); Protein, Total 6.6 g/dL (5.8-8.1); Sodium 140 mmol/L (136-145)
[2021-09-04] MEDS: Furosemide 40 MG TAB PO SCH (08:45)
[2021-09-04] MEDS: Spironolactone 25 MG TAB PO SCH (08:45)
[2021-09-04] MEDS: Apixaban 5 MG TAB PO SCH ×2 (08:45→20:16)
[2021-09-04] MEDS: Budesonide 0.5 MG/2 ML NEB NEB SCH ×2 (08:45→20:17)
[2021-09-04] MEDS: Sacubitril 49 MG/Valsartan 51 MG TABLET PO SCH ×2 (08:45→20:13)
[2021-09-04] MEDS: Aspirin 81 mg Enteric Coated Tablet PO SCH (08:45)
[2021-09-04] MEDS: levETIRAcetam 500 mg/5 ml Oral Solution PO SCH ×2 (08:45→20:17)
[2021-09-04] MEDS: Carvedilol 6.25 MG TAB PO SCH ×2 (08:46→20:16)
[2021-09-04] MEDS: Pramipexole Di-HCl 1 MG TAB PO SCH ×3 (08:53→20:13)
[2021-09-04] MEDS: Diclofenac 1% 100 GM GEL TOP SCH ×3 (08:54→21:14)
[2021-09-04] MEDS: Lactase 9,000 UNIT CHEWABLE TAB PO PRN (15:58)
[2021-09-04] MEDS: Lorazepam 0.5 MG TAB PO SCH (20:14)
[2021-09-04] MEDS: DULoxetine 30 MG CAP PO SCH (20:14)
[2021-09-05] MEDS: Levothyroxine Sodium 125 MCG TAB PO SCH (05:11)
[2021-09-05] MEDS: Acetaminophen 325 MG TAB PO SCH ×5 (05:11→21:08)
[2021-09-05] MEDS: Apixaban 5 MG TAB PO SCH ×2 (08:21→21:05)
[2021-09-05] MEDS: Spironolactone 25 MG TAB PO SCH (08:21)
[2021-09-05] MEDS: Sacubitril 49 MG/Valsartan 51 MG TABLET PO SCH ×2 (08:21→21:05)
[2021-09-05] MEDS: Pramipexole Di-HCl 1 MG TAB PO SCH ×3 (08:21→21:05)
[2021-09-05] MEDS: Carvedilol 6.25 MG TAB PO SCH ×2 (08:21→21:05)
[2021-09-05] MEDS: Aspirin 81 mg Enteric Coated Tablet PO SCH (08:21)
[2021-09-05] MEDS: levETIRAcetam 500 mg/5 ml Oral Solution PO SCH ×2 (08:22→21:03)
[2021-09-05] MEDS: Furosemide 40 MG TAB PO SCH (08:22)
[2021-09-05] MEDS: Diclofenac 1% 100 GM GEL TOP SCH (08:22)
[2021-09-05] MEDS: Budesonide 0.5 MG/2 ML NEB NEB SCH ×2 (09:27→21:04)
[2021-09-05] MEDS ORDERED: Emollient 15 oz bottle 450 ML, Triamcinolone Acetonide 200 MG TOP SCH (15:00)
[2021-09-05] MEDS: Diclofenac 1% 100 GM GEL TP SCH ×2 (15:14→21:04)
[2021-09-05] MEDS: Clotrimazole 1% Cream 15 GM TUBE TOP SCH ×2 (15:15→21:07)
[2021-09-05] MEDS: Lorazepam 0.5 MG TAB PO SCH (21:05)
[2021-09-05] MEDS: DULoxetine 30 MG CAP PO SCH (21:05)
[2021-09-06] MEDS: Levothyroxine Sodium 125 MCG TAB PO SCH (05:35)
[2021-09-06] MEDS: Acetaminophen 325 MG TAB PO SCH ×5 (05:35→21:14)
[2021-09-06] MEDS: Budesonide 0.5 MG/2 ML NEB NEB SCH ×2 (08:31→21:13)
[2021-09-06] MEDS: levETIRAcetam 500 mg/5 ml Oral Solution PO SCH ×2 (08:32→21:14)
[2021-09-06] MEDS: Clotrimazole 1% Cream 15 GM TUBE TOP SCH ×2 (08:32→21:15)
[2021-09-06] MEDS: Aspirin 81 mg Enteric Coated Tablet PO SCH (08:32)
[2021-09-06] MEDS: Sacubitril 49 MG/Valsartan 51 MG TABLET PO SCH ×2 (08:32→21:15)
[2021-09-06] MEDS: Apixaban 5 MG TAB PO SCH ×2 (08:32→21:15)
[2021-09-06] MEDS: Furosemide 40 MG TAB PO SCH (08:32)
[2021-09-06] MEDS: Carvedilol 6.25 MG TAB PO SCH ×2 (08:32→21:13)
[2021-09-06] MEDS: Spironolactone 25 MG TAB PO SCH (08:32)
[2021-09-06] MEDS: Pramipexole Di-HCl 1 MG TAB PO SCH ×3 (08:32→21:13)
[2021-09-06] MEDS: Diclofenac 1% 100 GM GEL TP SCH ×3 (08:33→21:16)
[2021-09-06] MEDS: Emollient 15 oz bottle 450 ML, Triamcinolone Acetonide 200 MG TOP SCH (08:34)
[2021-09-06] MEDS: Lorazepam 0.5 MG TAB PO SCH (21:13)
[2021-09-06] MEDS: DULoxetine 30 MG CAP PO SCH (21:14)
[2021-09-07] MEDS: Acetaminophen 325 MG TAB PO SCH ×5 (05:53→21:30)
[2021-09-07] MEDS: Levothyroxine Sodium 125 MCG TAB PO SCH (05:54)
[2021-09-07] MEDS: Pramipexole Di-HCl 1 MG TAB PO SCH ×3 (08:14→21:24)
[2021-09-07] MEDS: Furosemide 40 MG TAB PO SCH (08:14)
[2021-09-07] MEDS: Budesonide 0.5 MG/2 ML NEB NEB SCH ×2 (08:14→21:25)
[2021-09-07] MEDS: Spironolactone 25 MG TAB PO SCH (08:14)
[2021-09-07] MEDS: Carvedilol 6.25 MG TAB PO SCH ×2 (08:14→21:23)
[2021-09-07] MEDS: Aspirin 81 mg Enteric Coated Tablet PO SCH (08:14)
[2021-09-07] MEDS: Sacubitril 49 MG/Valsartan 51 MG TABLET PO SCH ×2 (08:14→21:24)
[2021-09-07] MEDS: Apixaban 5 MG TAB PO SCH ×2 (08:14→21:25)
[2021-09-07] MEDS: Ondansetron ODT 4 MG TAB SL PRN (08:14)
[2021-09-07] MEDS: Emollient 15 oz bottle 450 ML, Triamcinolone Acetonide 200 MG TOP SCH (08:15)
[2021-09-07] MEDS: Clotrimazole 1% Cream 15 GM TUBE TOP SCH ×2 (08:15→21:28)
[2021-09-07] MEDS: Diclofenac 1% 100 GM GEL TP SCH ×3 (08:15→21:23)
[2021-09-07] MEDS: levETIRAcetam 500 mg/5 ml Oral Solution PO SCH ×2 (08:15→21:23)
[2021-09-07] MEDS: Lorazepam 0.5 MG TAB PO SCH (21:24)
[2021-09-07] MEDS: DULoxetine 30 MG CAP PO SCH (21:24)
[2021-09-08] MEDS: Acetaminophen 325 MG TAB PO SCH ×5 (05:38→20:17)
[2021-09-08] MEDS: Levothyroxine Sodium 125 MCG TAB PO SCH (05:39)
[2021-09-08] MEDS: Diclofenac 1% 100 GM GEL TP SCH ×3 (08:30→20:20)
[2021-09-08] MEDS: levETIRAcetam 500 mg/5 ml Oral Solution PO SCH ×2 (08:30→20:18)
[2021-09-08] MEDS: Aspirin 81 mg Enteric Coated Tablet PO SCH (08:31)
[2021-09-08] MEDS: Carvedilol 6.25 MG TAB PO SCH ×2 (08:31→20:17)
[2021-09-08] MEDS: Furosemide 40 MG TAB PO SCH (08:31)
[2021-09-08] MEDS: Sacubitril 49 MG/Valsartan 51 MG TABLET PO SCH ×2 (08:31→20:17)
[2021-09-08] MEDS: Spironolactone 25 MG TAB PO SCH (08:31)
[2021-09-08] MEDS: Pramipexole Di-HCl 1 MG TAB PO SCH ×3 (08:31→20:16)
[2021-09-08] MEDS: Apixaban 5 MG TAB PO SCH ×2 (08:31→20:17)
[2021-09-08] MEDS: Clotrimazole 1% Cream 15 GM TUBE TOP SCH ×2 (08:32→20:19)
[2021-09-08] MEDS: Budesonide 0.5 MG/2 ML NEB NEB SCH ×2 (08:32→20:18)
[2021-09-08] MEDS: Emollient 15 oz bottle 450 ML, Triamcinolone Acetonide 200 MG TOP SCH (08:35)
[2021-09-08] MEDS: Ondansetron ODT 4 MG TAB SL PRN (16:11)
[2021-09-08] MEDS: DULoxetine 30 MG CAP PO SCH (20:17)
[2021-09-08] MEDS: Lorazepam 0.5 MG TAB PO SCH (20:20)
[2021-09-09] MEDS: Acetaminophen 325 MG TAB PO SCH ×5 (05:24→20:41)
[2021-09-09] MEDS: Levothyroxine Sodium 125 MCG TAB PO SCH (05:25)
[2021-09-09] MEDS: Aspirin 81 mg Enteric Coated Tablet PO SCH (08:15)
[2021-09-09] MEDS: Apixaban 5 MG TAB PO SCH ×2 (08:15→20:48)
[2021-09-09] MEDS: Spironolactone 25 MG TAB PO SCH (08:15)
[2021-09-09] MEDS: Furosemide 40 MG TAB PO SCH (08:15)
[2021-09-09] MEDS: Carvedilol 6.25 MG TAB PO SCH ×2 (08:15→20:43)
[2021-09-09] MEDS: Pramipexole Di-HCl 1 MG TAB PO SCH ×3 (08:15→20:42)
[2021-09-09] MEDS: Sacubitril 49 MG/Valsartan 51 MG TABLET PO SCH ×2 (08:15→20:41)
[2021-09-09] MEDS: Clotrimazole 1% Cream 15 GM TUBE TOP SCH ×2 (08:16→20:47)
[2021-09-09] MEDS: Budesonide 0.5 MG/2 ML NEB NEB SCH ×2 (08:16→20:48)
[2021-09-09] MEDS: Diclofenac 1% 100 GM GEL TP SCH ×3 (08:21→20:47)
[2021-09-09] MEDS: Emollient 15 oz bottle 450 ML, Triamcinolone Acetonide 200 MG TOP SCH (08:23)
[2021-09-09] MEDS: levETIRAcetam 500 MG TAB PO SCH ×2 (08:23→20:48)
[2021-09-09] MEDS: Lorazepam 0.5 MG TAB PO SCH (20:41)
[2021-09-09] MEDS: DULoxetine 30 MG CAP PO SCH (20:41)
[2021-09-10] MEDS: Acetaminophen 325 MG TAB PO SCH ×5 (05:29→20:35)
[2021-09-10] MEDS: Levothyroxine Sodium 125 MCG TAB PO SCH (05:30)
[2021-09-10] MEDS: Sacubitril 49 MG/Valsartan 51 MG TABLET PO SCH ×2 (09:03→20:35)
[2021-09-10] MEDS: Aspirin 81 mg Enteric Coated Tablet PO SCH (09:03)
[2021-09-10] MEDS: Carvedilol 6.25 MG TAB PO SCH ×2 (09:03→20:35)
[2021-09-10] MEDS: Furosemide 40 MG TAB PO SCH (09:04)
[2021-09-10] MEDS: levETIRAcetam 500 MG TAB PO SCH ×2 (09:04→20:34)
[2021-09-10] MEDS: Spironolactone 25 MG TAB PO SCH (09:04)
[2021-09-10] MEDS: Pramipexole Di-HCl 1 MG TAB PO SCH ×3 (09:04→20:34)
[2021-09-10] MEDS: Apixaban 5 MG TAB PO SCH ×2 (09:04→20:35)
[2021-09-10] MEDS: Budesonide 0.5 MG/2 ML NEB NEB SCH ×2 (09:06→20:36)
[2021-09-10] MEDS: Clotrimazole 1% Cream 15 GM TUBE TOP SCH ×2 (09:07→20:41)
[2021-09-10] MEDS: Diclofenac 1% 100 GM GEL TP SCH ×3 (09:07→20:41)
[2021-09-10] MEDS: Emollient 15 oz bottle 450 ML, Triamcinolone Acetonide 200 MG TOP SCH (09:08)
[2021-09-10] MEDS: Lorazepam 0.5 MG TAB PO SCH (20:30)
[2021-09-10] MEDS: DULoxetine 30 MG CAP PO SCH (20:35)
[2021-09-11] MEDS: Levothyroxine Sodium 125 MCG TAB PO SCH (05:20)
[2021-09-11] MEDS: Acetaminophen 325 MG TAB PO SCH ×5 (05:20→22:17)
[2021-09-11] MEDS: Ondansetron ODT 4 MG TAB SL PRN ×2 (07:30→14:10)
[2021-09-11] MEDS: Pramipexole Di-HCl 1 MG TAB PO SCH ×3 (08:41→20:23)
[2021-09-11] MEDS: levETIRAcetam 500 MG TAB PO SCH ×2 (08:41→20:23)
[2021-09-11] MEDS: Furosemide 40 MG TAB PO SCH (08:42)
[2021-09-11] MEDS: Diclofenac 1% 100 GM GEL TP SCH ×3 (08:44→20:23)
[2021-09-11] MEDS: Clotrimazole 1% Cream 15 GM TUBE TOP SCH ×2 (08:44→20:24)
[2021-09-11] MEDS: Carvedilol 6.25 MG TAB PO SCH ×2 (08:44→20:23)
[2021-09-11] MEDS: Budesonide 0.5 MG/2 ML NEB NEB SCH ×2 (08:45→20:23)
[2021-09-11] MEDS: Aspirin 81 mg Enteric Coated Tablet PO SCH (08:46)
[2021-09-11] MEDS: Sacubitril 49 MG/Valsartan 51 MG TABLET PO SCH ×2 (08:46→20:23)
[2021-09-11] MEDS: Spironolactone 25 MG TAB PO SCH (08:46)
[2021-09-11] MEDS: Apixaban 5 MG TAB PO SCH ×2 (08:46→20:23)
[2021-09-11] MEDS: Emollient 15 oz bottle 450 ML, Triamcinolone Acetonide 200 MG TOP SCH (08:47)
[2021-09-11] MEDS: Lactase 9,000 UNIT CHEWABLE TAB PO PRN (14:09)
[2021-09-11] MEDS: Lorazepam 0.5 MG TAB PO SCH (20:22)
[2021-09-11] MEDS: DULoxetine 30 MG CAP PO SCH (20:22)
[2021-09-12] MEDS: Acetaminophen 325 MG TAB PO SCH ×5 (05:16→20:53)
[2021-09-12] MEDS: Levothyroxine Sodium 125 MCG TAB PO SCH (05:16)
[2021-09-12] MEDS: Spironolactone 25 MG TAB PO SCH (08:25)
[2021-09-12] MEDS: Carvedilol 6.25 MG TAB PO SCH ×2 (08:25→20:53)
[2021-09-12] MEDS: Pramipexole Di-HCl 1 MG TAB PO SCH ×3 (08:25→20:53)
[2021-09-12] MEDS: Sacubitril 49 MG/Valsartan 51 MG TABLET PO SCH ×2 (08:25→20:55)
[2021-09-12] MEDS: Budesonide 0.5 MG/2 ML NEB NEB SCH ×2 (08:26→21:11)
[2021-09-12] MEDS: levETIRAcetam 500 MG TAB PO SCH ×2 (08:26→20:53)
[2021-09-12] MEDS: Aspirin 81 mg Enteric Coated Tablet PO SCH (08:26)
[2021-09-12] MEDS: Furosemide 40 MG TAB PO SCH (08:26)
[2021-09-12] MEDS: Clotrimazole 1% Cream 15 GM TUBE TOP SCH ×2 (08:26→21:11)
[2021-09-12] MEDS: Diclofenac 1% 100 GM GEL TP SCH ×3 (08:26→21:10)
[2021-09-12] MEDS: Apixaban 5 MG TAB PO SCH ×2 (08:27→20:53)
[2021-09-12] MEDS: Emollient 15 oz bottle 450 ML, Triamcinolone Acetonide 200 MG TOP SCH (08:27)
[2021-09-12] MEDS: DULoxetine 30 MG CAP PO SCH (20:53)
[2021-09-12] MEDS: Lorazepam 0.5 MG TAB PO SCH (20:55)
[2021-09-13] MEDS: Levothyroxine Sodium 125 MCG TAB PO SCH (05:37)
[2021-09-13] MEDS: Acetaminophen 325 MG TAB PO SCH ×5 (05:37→20:37)
[2021-09-13] MEDS: Spironolactone 25 MG TAB PO SCH (08:29)
[2021-09-13] MEDS: Apixaban 5 MG TAB PO SCH ×2 (08:34→20:37)
[2021-09-13] MEDS: Aspirin 81 mg Enteric Coated Tablet PO SCH (08:34)
[2021-09-13] MEDS: Budesonide 0.5 MG/2 ML NEB NEB SCH ×2 (08:34→20:38)
[2021-09-13] MEDS: Carvedilol 6.25 MG TAB PO SCH ×2 (08:34→20:37)
[2021-09-13] MEDS: Clotrimazole 1% Cream 15 GM TUBE TOP SCH ×2 (08:35→20:46)
[2021-09-13] MEDS: levETIRAcetam 500 MG TAB PO SCH ×2 (08:35→20:37)
[2021-09-13] MEDS: Diclofenac 1% 100 GM GEL TP SCH ×3 (08:35→20:45)
[2021-09-13] MEDS: Furosemide 40 MG TAB PO SCH (08:35)
[2021-09-13] MEDS: Emollient 15 oz bottle 450 ML, Triamcinolone Acetonide 200 MG TOP SCH (08:36)
[2021-09-13] MEDS: Pramipexole Di-HCl 1 MG TAB PO SCH ×3 (08:36→20:37)
[2021-09-13] MEDS: Sacubitril 49 MG/Valsartan 51 MG TABLET PO SCH ×2 (08:36→20:37)
[2021-09-13] MEDS ORDERED: Polyethylene Glycol 3350 17 GM Packet PO PRN (10:12)
[2021-09-13] MEDS: DULoxetine 30 MG CAP PO SCH (20:37)
[2021-09-13] MEDS: Lorazepam 0.5 MG TAB PO SCH (20:37)
[2021-09-14] MEDS: Acetaminophen 325 MG TAB PO SCH ×5 (05:19→21:23)
[2021-09-14] MEDS: Levothyroxine Sodium 125 MCG TAB PO SCH (05:19)
[2021-09-14 06:56] LABS: Hemoglobin 9.8 g/dL (12.0-16.0); Platelet Count 111 thou/uL (130-400)
[2021-09-14] MEDS: Spironolactone 25 MG TAB PO SCH (09:10)
[2021-09-14] MEDS: Polyethylene Glycol 3350 17 GM Packet PO SCH (09:10)
[2021-09-14] MEDS: Furosemide 40 MG TAB PO SCH (09:10)
[2021-09-14] MEDS: Aspirin 81 mg Enteric Coated Tablet PO SCH (09:10)
[2021-09-14] MEDS: Apixaban 5 MG TAB PO SCH ×2 (09:10→21:23)
[2021-09-14] MEDS: Sacubitril 49 MG/Valsartan 51 MG TABLET PO SCH ×2 (09:10→21:22)
[2021-09-14] MEDS: levETIRAcetam 500 MG TAB PO SCH ×2 (09:10→21:24)
[2021-09-14] MEDS: Pramipexole Di-HCl 1 MG TAB PO SCH ×3 (09:10→21:24)
[2021-09-14] MEDS: Carvedilol 6.25 MG TAB PO SCH ×2 (09:10→21:24)
[2021-09-14] MEDS: Budesonide 0.5 MG/2 ML NEB NEB SCH ×2 (09:11→21:26)
[2021-09-14] MEDS: Diclofenac 1% 100 GM GEL TP SCH ×3 (09:12→21:26)
[2021-09-14] MEDS: Clotrimazole 1% Cream 15 GM TUBE TOP SCH ×2 (09:12→21:25)
[2021-09-14] MEDS: Emollient 15 oz bottle 450 ML, Triamcinolone Acetonide 200 MG TOP SCH (09:13)
[2021-09-14] MEDS: Bisacodyl 10 MG SUPP PR PRN (12:57)
[2021-09-14] MEDS: DULoxetine 30 MG CAP PO SCH (21:22)
[2021-09-14] MEDS: Lorazepam 0.5 MG TAB PO SCH (21:25)
[2021-09-15] MEDS: Acetaminophen 325 MG TAB PO SCH ×5 (05:48→20:26)
[2021-09-15] MEDS: Levothyroxine Sodium 125 MCG TAB PO SCH (05:49)
[2021-09-15] MEDS: Diclofenac 1% 100 GM GEL TP SCH ×3 (09:14→20:27)
[2021-09-15] MEDS: Clotrimazole 1% Cream 15 GM TUBE TOP SCH ×2 (09:15→20:27)
[2021-09-15] MEDS: Aspirin 81 mg Enteric Coated Tablet PO SCH (09:19)
[2021-09-15] MEDS: Sacubitril 49 MG/Valsartan 51 MG TABLET PO SCH ×2 (09:19→20:26)
[2021-09-15] MEDS: Polyethylene Glycol 3350 17 GM Packet PO SCH (09:19)
[2021-09-15] MEDS: Apixaban 5 MG TAB PO SCH ×2 (09:19→20:26)
[2021-09-15] MEDS: Furosemide 40 MG TAB PO SCH (09:19)
[2021-09-15] MEDS: Pramipexole Di-HCl 1 MG TAB PO SCH ×3 (09:19→20:26)
[2021-09-15] MEDS: levETIRAcetam 500 MG TAB PO SCH ×2 (09:19→20:26)
[2021-09-15] MEDS: Spironolactone 25 MG TAB PO SCH (09:19)
[2021-09-15] MEDS: Carvedilol 6.25 MG TAB PO SCH ×2 (09:20→20:26)
[2021-09-15] MEDS: Budesonide 0.5 MG/2 ML NEB NEB SCH ×2 (09:22→20:26)
[2021-09-15] MEDS: Emollient 15 oz bottle 450 ML, Triamcinolone Acetonide 200 MG TOP SCH (09:22)
[2021-09-15] MEDS: Lorazepam 0.5 MG TAB PO SCH (20:26)
[2021-09-15] MEDS: DULoxetine 30 MG CAP PO SCH (20:26)
[2021-09-15] MEDS: Bisacodyl 10 MG SUPP PR PRN (20:34)
[2021-09-16] MEDS: Acetaminophen 325 MG TAB PO SCH ×5 (05:55→21:59)
[2021-09-16] MEDS: Levothyroxine Sodium 125 MCG TAB PO SCH (05:55)
[2021-09-16] MEDS: Emollient 15 oz bottle 450 ML, Triamcinolone Acetonide 200 MG TOP SCH (08:35)
[2021-09-16] MEDS: Diclofenac 1% 100 GM GEL TP SCH ×3 (08:35→20:41)
[2021-09-16] MEDS: Polyethylene Glycol 3350 17 GM Packet PO SCH (08:35)
[2021-09-16] MEDS: Clotrimazole 1% Cream 15 GM TUBE TOP SCH ×2 (08:35→20:40)
[2021-09-16] MEDS: Furosemide 40 MG TAB PO SCH (08:36)
[2021-09-16] MEDS: Pramipexole Di-HCl 1 MG TAB PO SCH ×3 (08:36→20:38)
[2021-09-16] MEDS: Sacubitril 49 MG/Valsartan 51 MG TABLET PO SCH ×2 (08:36→20:38)
[2021-09-16] MEDS: Aspirin 81 mg Enteric Coated Tablet PO SCH (08:36)
[2021-09-16] MEDS: Carvedilol 6.25 MG TAB PO SCH ×2 (08:37→20:38)
[2021-09-16] MEDS: levETIRAcetam 500 MG TAB PO SCH ×2 (08:37→20:38)
[2021-09-16] MEDS: Spironolactone 25 MG TAB PO SCH (08:37)
[2021-09-16] MEDS: Apixaban 5 MG TAB PO SCH ×2 (08:37→20:40)
[2021-09-16] MEDS: Budesonide 0.5 MG/2 ML NEB NEB SCH ×2 (08:37→20:37)
[2021-09-16 09:13] LABS: Anion Gap 16 mmol/L (10-20); BUN (Urea Nitrogen) 41 mg/dL (9.8-20.1); Calc. Creatinine Clearance 64 mL/min (70-130); Calcium 9.9 mg/dL (7.8-10.44); Carbon Dioxide 32 mmol/L (23-31); Chloride 100 mmol/L (98-107); Glucose 133 mg/dL (83-110); Potassium 4.9 mmol/L (3.5-5.1); Sodium 143 mmol/L (136-145)
[2021-09-16 09:18] LABS: #Basophils 0.1 thou/uL (0.0-0.2); #Eosinphils 0.4 thou/uL (0.0-0.7); #Lymphocytes 1.7 thou/uL (1.20-3.40); #Monocytes 0.4 thou/uL (0.11-0.59); #Neutrophils 1.6 thou/uL (1.40-6.50); %Basophils 1.7 % (0.0-1.0); %Eosinophils 9.3 % (0.0-10.0); %Lymphocytes 41.7 % (21.0-51.0); %Monocytes 8.7 % (0.0-10.0); %Neutrophils 38.6 % (42.0-75.0); Hemoglobin 10.5 g/dL (12.0-16.0); Mean Corpuscular HGB CONC 31.2 g/dL (32.0-36.0); Mean Corpuscular Hemoglobin 30.5 pg (27.0-31.0); Mean Corpuscular Volume 97.9 fL (78.0-98.0); Mean Platelet Volume 7.8 fL (7.4-10.4); Platelet Count 133 thou/uL (130-400); RBC Distribution Width 12.3 % (11.5-14.5); Red Blood Cell (RBC) Count 3.44 mill/uL (4.20-5.40); White Blood Cell (WBC) Count 4.1 thou/uL (4.8-10.8)
[2021-09-16] MEDS: DULoxetine 30 MG CAP PO SCH (20:38)
[2021-09-16] MEDS: Lorazepam 0.5 MG TAB PO SCH (20:41)
[2021-09-17] MEDS: Levothyroxine Sodium 125 MCG TAB PO SCH (05:00)
[2021-09-17] MEDS: Acetaminophen 325 MG TAB PO SCH ×5 (05:00→20:15)
[2021-09-17] MEDS: Carvedilol 6.25 MG TAB PO SCH ×2 (08:32→20:13)
[2021-09-17] MEDS: Aspirin 81 mg Enteric Coated Tablet PO SCH (08:32)
[2021-09-17] MEDS: Furosemide 40 MG TAB PO SCH (08:32)
[2021-09-17] MEDS: Pramipexole Di-HCl 1 MG TAB PO SCH ×3 (08:32→20:14)
[2021-09-17] MEDS: Sacubitril 49 MG/Valsartan 51 MG TABLET PO SCH ×2 (08:32→20:16)
[2021-09-17] MEDS: Spironolactone 25 MG TAB PO SCH (08:32)
[2021-09-17] MEDS: Apixaban 5 MG TAB PO SCH ×2 (08:32→20:16)
[2021-09-17] MEDS: Diclofenac 1% 100 GM GEL TP SCH ×3 (08:33→20:12)
[2021-09-17] MEDS: levETIRAcetam 500 MG TAB PO SCH ×2 (08:33→20:14)
[2021-09-17] MEDS: Clotrimazole 1% Cream 15 GM TUBE TOP SCH ×2 (08:33→20:17)
[2021-09-17] MEDS: Polyethylene Glycol 3350 17 GM Packet PO SCH (08:33)
[2021-09-17] MEDS: Budesonide 0.5 MG/2 ML NEB NEB SCH ×2 (08:33→20:17)
[2021-09-17] MEDS: Emollient 15 oz bottle 450 ML, Triamcinolone Acetonide 200 MG TOP SCH (08:34)
[2021-09-17] MEDS: DULoxetine 30 MG CAP PO SCH (20:13)
[2021-09-17] MEDS: Lorazepam 0.5 MG TAB PO SCH (20:16)
[2021-09-18] MEDS: Acetaminophen 325 MG TAB PO SCH ×5 (05:58→20:07)
[2021-09-18] MEDS: Levothyroxine Sodium 125 MCG TAB PO SCH (06:00)
[2021-09-18] MEDS: levETIRAcetam 500 MG TAB PO SCH ×2 (08:36→20:06)
[2021-09-18] MEDS: Aspirin 81 mg Enteric Coated Tablet PO SCH (08:36)
[2021-09-18] MEDS: Sacubitril 49 MG/Valsartan 51 MG TABLET PO SCH ×2 (08:36→20:09)
[2021-09-18] MEDS: Carvedilol 6.25 MG TAB PO SCH ×2 (08:36→20:07)
[2021-09-18] MEDS: Furosemide 40 MG TAB PO SCH (08:36)
[2021-09-18] MEDS: Pramipexole Di-HCl 1 MG TAB PO SCH ×3 (08:36→20:06)
[2021-09-18] MEDS: Apixaban 5 MG TAB PO SCH ×2 (08:36→20:09)
[2021-09-18] MEDS: Spironolactone 25 MG TAB PO SCH (08:36)
[2021-09-18] MEDS: Budesonide 0.5 MG/2 ML NEB NEB SCH ×2 (08:37→20:09)
[2021-09-18] MEDS: Diclofenac 1% 100 GM GEL TP SCH ×3 (08:39→20:11)
[2021-09-18] MEDS: Clotrimazole 1% Cream 15 GM TUBE TOP SCH ×2 (08:40→20:11)
[2021-09-18] MEDS: Polyethylene Glycol 3350 17 GM Packet PO SCH (08:40)
[2021-09-18] MEDS: Emollient 15 oz bottle 450 ML, Triamcinolone Acetonide 200 MG TOP SCH (08:40)
[2021-09-18] MEDS: DULoxetine 30 MG CAP PO SCH (20:08)
[2021-09-18] MEDS: Lorazepam 0.5 MG TAB PO SCH (20:09)
[2021-09-19] MEDS: Acetaminophen 325 MG TAB PO SCH ×5 (06:25→21:00)
[2021-09-19] MEDS: Levothyroxine Sodium 125 MCG TAB PO SCH (06:28)
[2021-09-19] MEDS: levETIRAcetam 500 MG TAB PO SCH ×2 (08:52→21:01)
[2021-09-19] MEDS: Apixaban 5 MG TAB PO SCH ×2 (08:52→21:01)
[2021-09-19] MEDS: Aspirin 81 mg Enteric Coated Tablet PO SCH (08:52)
[2021-09-19] MEDS: Sacubitril 49 MG/Valsartan 51 MG TABLET PO SCH ×2 (08:52→21:01)
[2021-09-19] MEDS: Pramipexole Di-HCl 1 MG TAB PO SCH ×3 (08:52→21:02)
[2021-09-19] MEDS: Spironolactone 25 MG TAB PO SCH (08:52)
[2021-09-19] MEDS: Furosemide 40 MG TAB PO SCH (08:52)
[2021-09-19] MEDS: Carvedilol 6.25 MG TAB PO SCH ×2 (08:53→21:01)
[2021-09-19] MEDS: Budesonide 0.5 MG/2 ML NEB NEB SCH ×2 (08:53→21:05)
[2021-09-19] MEDS: Polyethylene Glycol 3350 17 GM Packet PO SCH (08:54)
[2021-09-19] MEDS: Diclofenac 1% 100 GM GEL TP SCH ×3 (08:55→21:05)
[2021-09-19] MEDS: Emollient 15 oz bottle 450 ML, Triamcinolone Acetonide 200 MG TOP SCH (08:55)
[2021-09-19] MEDS: Clotrimazole 1% Cream 15 GM TUBE TOP SCH ×2 (08:55→21:05)
[2021-09-19] MEDS: Bisacodyl 10 MG SUPP PR PRN (09:45)
[2021-09-19] MEDS: Lorazepam 0.5 MG TAB PO SCH (21:01)
[2021-09-19] MEDS: DULoxetine 30 MG CAP PO SCH (21:05)
[2021-09-20] MEDS: Levothyroxine Sodium 125 MCG TAB PO SCH (05:22)
[2021-09-20] MEDS: Acetaminophen 325 MG TAB PO SCH ×5 (05:22→21:00)
[2021-09-20 05:32] LABS: #Eosinphils 0.4 thou/uL (0.0-0.7); #Lymphocytes 1.6 thou/uL (1.20-3.40); #Monocytes 0.3 thou/uL (0.11-0.59); #Neutrophils 1.1 thou/uL (1.40-6.50); %Basophils 1.4 % (0.0-1.0); %Eosinophils 11.5 % (0.0-10.0); %Lymphocytes 46.5 % (21.0-51.0); %Monocytes 8.8 % (0.0-10.0); %Neutrophils 31.8 % (42.0-75.0); Hemoglobin 9.7 g/dL (12.0-16.0); Mean Corpuscular HGB CONC 32.6 g/dL (32.0-36.0); Mean Corpuscular Hemoglobin 31.6 pg (27.0-31.0); Mean Corpuscular Volume 96.9 fL (78.0-98.0); Mean Platelet Volume 6.5 fL (7.4-10.4); Platelet Count 165 thou/uL (130-400); Red Blood Cell (RBC) Count 3.08 mill/uL (4.20-5.40); White Blood Cell (WBC) Count 3.3 thou/uL (4.8-10.8)
[2021-09-20 05:49] LABS: Anion Gap 14 mmol/L (10-20); BUN (Urea Nitrogen) 58 mg/dL (9.8-20.1); Calc. Creatinine Clearance 46 mL/min (70-130); Calcium 9.4 mg/dL (7.8-10.44); Carbon Dioxide 32 mmol/L (23-31); Chloride 100 mmol/L (98-107); Glucose 99 mg/dL (83-110); Potassium 4.7 mmol/L (3.5-5.1); Sodium 141 mmol/L (136-145)
[2021-09-20] MEDS: Aspirin 81 mg Enteric Coated Tablet PO SCH (08:52)
[2021-09-20] MEDS: Spironolactone 25 MG TAB PO SCH (08:52)
[2021-09-20] MEDS: Budesonide 0.5 MG/2 ML NEB NEB SCH ×2 (08:52→20:59)
[2021-09-20] MEDS: Carvedilol 6.25 MG TAB PO SCH ×2 (08:53→20:59)
[2021-09-20] MEDS: Furosemide 40 MG TAB PO SCH (08:53)
[2021-09-20] MEDS: Pramipexole Di-HCl 1 MG TAB PO SCH ×3 (08:53→20:58)
[2021-09-20] MEDS: Polyethylene Glycol 3350 17 GM Packet PO SCH (08:53)
[2021-09-20] MEDS: levETIRAcetam 500 MG TAB PO SCH ×2 (08:53→20:58)
[2021-09-20] MEDS: Sacubitril 49 MG/Valsartan 51 MG TABLET PO SCH ×2 (08:53→21:22)
[2021-09-20] MEDS: Apixaban 5 MG TAB PO SCH ×2 (08:54→20:58)
[2021-09-20] MEDS: Diclofenac 1% 100 GM GEL TP SCH ×3 (08:55→20:58)
[2021-09-20] MEDS: Clotrimazole 1% Cream 15 GM TUBE TOP SCH ×2 (08:56→20:59)
[2021-09-20] MEDS: Emollient 15 oz bottle 450 ML, Triamcinolone Acetonide 200 MG TOP SCH (08:56)
[2021-09-20] MEDS ORDERED: Carvedilol 6.25 MG TAB PO SCH (09:21)
[2021-09-20] MEDS ORDERED: Carvedilol 3.125 MG TAB PO SCH (09:30)
[2021-09-20] MEDS: Lorazepam 0.5 MG TAB PO SCH (20:57)
[2021-09-20] MEDS: DULoxetine 30 MG CAP PO SCH (20:58)
[2021-09-21] MEDS: Acetaminophen 325 MG TAB PO SCH ×5 (05:12→20:56)
[2021-09-21] MEDS: Levothyroxine Sodium 125 MCG TAB PO SCH (05:13)
[2021-09-21] MEDS: Budesonide 0.5 MG/2 ML NEB NEB SCH ×2 (08:48→20:57)
[2021-09-21] MEDS: Pramipexole Di-HCl 1 MG TAB PO SCH ×3 (08:48→20:56)
[2021-09-21] MEDS: Sacubitril 49 MG/Valsartan 51 MG TABLET PO SCH ×2 (08:49→20:56)
[2021-09-21] MEDS: Furosemide 40 MG TAB PO SCH (08:49)
[2021-09-21] MEDS: levETIRAcetam 500 MG TAB PO SCH ×2 (08:49→20:56)
[2021-09-21] MEDS: Apixaban 5 MG TAB PO SCH ×2 (08:49→20:56)
[2021-09-21] MEDS: Carvedilol 6.25 MG TAB PO SCH ×2 (08:49→20:55)
[2021-09-21] MEDS: Aspirin 81 mg Enteric Coated Tablet PO SCH (08:49)
[2021-09-21] MEDS: Diclofenac 1% 100 GM GEL TP SCH ×3 (08:50→20:59)
[2021-09-21] MEDS: Spironolactone 25 MG TAB PO SCH (08:50)
[2021-09-21] MEDS: Clotrimazole 1% Cream 15 GM TUBE TOP SCH ×2 (08:50→21:00)
[2021-09-21] MEDS: Polyethylene Glycol 3350 17 GM Packet PO SCH (08:51)
[2021-09-21] MEDS: Emollient 15 oz bottle 450 ML, Triamcinolone Acetonide 200 MG TOP SCH (08:52)
[2021-09-21] MEDS: Lorazepam 0.5 MG TAB PO SCH (20:55)
[2021-09-21] MEDS: DULoxetine 30 MG CAP PO SCH (20:56)
[2021-09-22] MEDS: Acetaminophen 325 MG TAB PO SCH ×5 (05:11→21:50)
[2021-09-22] MEDS: Levothyroxine Sodium 125 MCG TAB PO SCH (05:11)
[2021-09-22] MEDS: Aspirin 81 mg Enteric Coated Tablet PO SCH (08:44)
[2021-09-22] MEDS: Sacubitril 49 MG/Valsartan 51 MG TABLET PO SCH ×2 (08:44→20:23)
[2021-09-22] MEDS: Carvedilol 6.25 MG TAB PO SCH ×2 (08:44→20:23)
[2021-09-22] MEDS: Pramipexole Di-HCl 1 MG TAB PO SCH ×3 (08:44→20:48)
[2021-09-22] MEDS: levETIRAcetam 500 MG TAB PO SCH ×2 (08:44→20:23)
[2021-09-22] MEDS: Furosemide 40 MG TAB PO SCH (08:44)
[2021-09-22] MEDS: Polyethylene Glycol 3350 17 GM Packet PO SCH (08:45)
[2021-09-22] MEDS: Spironolactone 25 MG TAB PO SCH ×2 (08:45→08:47)
[2021-09-22] MEDS: Budesonide 0.5 MG/2 ML NEB NEB SCH ×2 (08:45→20:24)
[2021-09-22] MEDS: Diclofenac 1% 100 GM GEL TP SCH ×3 (08:46→20:36)
[2021-09-22] MEDS: Clotrimazole 1% Cream 15 GM TUBE TOP SCH ×2 (08:49→20:25)
[2021-09-22] MEDS: Apixaban 5 MG TAB PO SCH ×2 (08:49→20:24)
[2021-09-22] MEDS: Emollient 15 oz bottle 450 ML, Triamcinolone Acetonide 200 MG TOP SCH (08:49)
[2021-09-22] MEDS: Lorazepam 0.5 MG TAB PO SCH (20:23)
[2021-09-22] MEDS: DULoxetine 30 MG CAP PO SCH (20:23)
[2021-09-23] MEDS: Acetaminophen 325 MG TAB PO SCH ×5 (05:13→21:50)
[2021-09-23] MEDS: Levothyroxine Sodium 125 MCG TAB PO SCH (05:13)
[2021-09-23 05:41] LABS: Anion Gap 12 mmol/L (10-20); BUN (Urea Nitrogen) 51 mg/dL (9.8-20.1); Band 2 % (5-11); Calc. Creatinine Clearance 55 mL/min (70-130); Calcium 9.6 mg/dL (7.8-10.44); Carbon Dioxide 31 mmol/L (23-31); Chloride 105 mmol/L (98-107); Eosinophils 5 % (0-10); Glucose 107 mg/dL (83-110); Hemoglobin 9.8 g/dL (12.0-16.0); Lymphocytes 48 % (21-51); MDiff Complete? YES; Mean Corpuscular HGB CONC 32.3 g/dL (32.0-36.0); Mean Corpuscular Hemoglobin 31.4 pg (27.0-31.0); Mean Corpuscular Volume 97.1 fL (78.0-98.0); Mean Platelet Volume 7.6 fL (7.4-10.4); Monocytes 6 % (0-10); Neutrophil 39 % (42-75); Platelet Count 191 thou/uL (130-400); Potassium 4.8 mmol/L (3.5-5.1); RBC Distribution Width 12.2 % (11.5-14.5); Red Blood Cell (RBC) Count 3.11 mill/uL (4.20-5.40); Sodium 143 mmol/L (136-145); White Blood Cell (WBC) Count 3.8 thou/uL (4.8-10.8)
[2021-09-23] MEDS: Apixaban 5 MG TAB PO SCH ×2 (08:23→20:37)
[2021-09-23] MEDS: Aspirin 81 mg Enteric Coated Tablet PO SCH (08:23)
[2021-09-23] MEDS: Polyethylene Glycol 3350 17 GM Packet PO SCH (08:23)
[2021-09-23] MEDS: Furosemide 40 MG TAB PO SCH (08:23)
[2021-09-23] MEDS: Sacubitril 49 MG/Valsartan 51 MG TABLET PO SCH ×2 (08:23→20:38)
[2021-09-23] MEDS: Carvedilol 6.25 MG TAB PO SCH (08:23)
[2021-09-23] MEDS: Spironolactone 25 MG TAB PO SCH (08:23)
[2021-09-23] MEDS: levETIRAcetam 500 MG TAB PO SCH ×2 (08:24→20:38)
[2021-09-23] MEDS: Budesonide 0.5 MG/2 ML NEB NEB SCH ×2 (08:24→20:40)
[2021-09-23] MEDS: Pramipexole Di-HCl 1 MG TAB PO SCH ×4 (08:24→20:37)
[2021-09-23] MEDS: Emollient 15 oz bottle 450 ML, Triamcinolone Acetonide 200 MG TOP SCH (08:25)
[2021-09-23] MEDS: Diclofenac 1% 100 GM GEL TP SCH ×3 (08:26→20:40)
[2021-09-23] MEDS: Clotrimazole 1% Cream 15 GM TUBE TOP SCH ×2 (08:26→20:40)
[2021-09-23 14:37] VITALS: BMI 42.4
[2021-09-23] MEDS: DULoxetine 30 MG CAP PO SCH (20:37)
[2021-09-23] MEDS: Carvedilol 3.125 MG TAB PO SCH (20:38)
[2021-09-23] MEDS: Lorazepam 0.5 MG TAB PO SCH (21:50)
[2021-09-24] MEDS: Levothyroxine Sodium 125 MCG TAB PO SCH (05:28)
[2021-09-24] MEDS: Acetaminophen 325 MG TAB PO SCH ×5 (05:28→21:32)
[2021-09-24] MEDS: Budesonide 0.5 MG/2 ML NEB NEB SCH ×2 (08:06→20:28)
[2021-09-24] MEDS: Aspirin 81 mg Enteric Coated Tablet PO SCH (08:07)
[2021-09-24] MEDS: Apixaban 5 MG TAB PO SCH ×2 (08:07→20:29)
[2021-09-24] MEDS: Spironolactone 25 MG TAB PO SCH (08:07)
[2021-09-24] MEDS: Diclofenac 1% 100 GM GEL TP SCH ×3 (08:07→20:30)
[2021-09-24] MEDS: Furosemide 40 MG TAB PO SCH (08:07)
[2021-09-24] MEDS: Pramipexole Di-HCl 1 MG TAB PO SCH ×3 (08:07→20:28)
[2021-09-24] MEDS: Sacubitril 49 MG/Valsartan 51 MG TABLET PO SCH ×2 (08:07→20:29)
[2021-09-24] MEDS: Clotrimazole 1% Cream 15 GM TUBE TOP SCH ×2 (08:07→20:29)
[2021-09-24] MEDS: Polyethylene Glycol 3350 17 GM Packet PO SCH (08:07)
[2021-09-24] MEDS: levETIRAcetam 500 MG TAB PO SCH ×2 (08:07→20:29)
[2021-09-24] MEDS: Carvedilol 3.125 MG TAB PO SCH ×2 (08:08→20:29)
[2021-09-24] MEDS: Emollient 15 oz bottle 450 ML, Triamcinolone Acetonide 200 MG TOP SCH (08:09)
[2021-09-24] MEDS: DULoxetine 30 MG CAP PO SCH (20:28)
[2021-09-24] MEDS: Lorazepam 0.5 MG TAB PO SCH (20:29)
[2021-09-25] MEDS: Levothyroxine Sodium 125 MCG TAB PO SCH (05:42)
[2021-09-25] MEDS: Acetaminophen 325 MG TAB PO SCH ×5 (05:42→22:07)
[2021-09-25] MEDS: Budesonide 0.5 MG/2 ML NEB NEB SCH ×2 (08:05→22:08)
[2021-09-25] MEDS: Pramipexole Di-HCl 1 MG TAB PO SCH ×3 (08:06→22:07)
[2021-09-25] MEDS: Sacubitril 49 MG/Valsartan 51 MG TABLET PO SCH ×2 (08:06→22:06)
[2021-09-25] MEDS: Polyethylene Glycol 3350 17 GM Packet PO SCH (08:06)
[2021-09-25] MEDS: Apixaban 5 MG TAB PO SCH ×2 (08:06→22:07)
[2021-09-25] MEDS: Carvedilol 3.125 MG TAB PO SCH ×2 (08:06→22:07)
[2021-09-25] MEDS: Spironolactone 25 MG TAB PO SCH (08:06)
[2021-09-25] MEDS: levETIRAcetam 500 MG TAB PO SCH ×2 (08:06→22:07)
[2021-09-25] MEDS: Aspirin 81 mg Enteric Coated Tablet PO SCH (08:06)
[2021-09-25] MEDS: Furosemide 40 MG TAB PO SCH (08:08)
[2021-09-25] MEDS: Clotrimazole 1% Cream 15 GM TUBE TOP SCH ×2 (08:08→22:09)
[2021-09-25] MEDS: Diclofenac 1% 100 GM GEL TP SCH ×3 (08:08→22:09)
[2021-09-25] MEDS: Emollient 15 oz bottle 450 ML, Triamcinolone Acetonide 200 MG TOP SCH (08:09)
[2021-09-25] MEDS: DULoxetine 30 MG CAP PO SCH (22:07)
[2021-09-25] MEDS: Lorazepam 0.5 MG TAB PO SCH (22:07)
[2021-09-26] MEDS: Acetaminophen 325 MG TAB PO SCH ×5 (05:11→22:00)
[2021-09-26] MEDS: Levothyroxine Sodium 125 MCG TAB PO SCH (05:12)
[2021-09-26] MEDS: Apixaban 5 MG TAB PO SCH ×2 (09:02→20:31)
[2021-09-26] MEDS: Aspirin 81 mg Enteric Coated Tablet PO SCH (09:02)
[2021-09-26] MEDS: Carvedilol 3.125 MG TAB PO SCH ×2 (09:03→20:31)
[2021-09-26] MEDS: Spironolactone 25 MG TAB PO SCH (09:03)
[2021-09-26] MEDS: Furosemide 40 MG TAB PO SCH (09:03)
[2021-09-26] MEDS: Pramipexole Di-HCl 1 MG TAB PO SCH ×3 (09:03→20:30)
[2021-09-26] MEDS: levETIRAcetam 500 MG TAB PO SCH ×2 (09:03→20:30)
[2021-09-26] MEDS: Sacubitril 49 MG/Valsartan 51 MG TABLET PO SCH ×2 (09:03→20:31)
[2021-09-26] MEDS: Budesonide 0.5 MG/2 ML NEB NEB SCH ×2 (09:04→20:31)
[2021-09-26] MEDS: Polyethylene Glycol 3350 17 GM Packet PO SCH (09:04)
[2021-09-26] MEDS: Clotrimazole 1% Cream 15 GM TUBE TOP SCH ×2 (09:04→20:31)
[2021-09-26] MEDS: Diclofenac 1% 100 GM GEL TP SCH ×3 (09:05→20:31)
[2021-09-26] MEDS: Emollient 15 oz bottle 450 ML, Triamcinolone Acetonide 200 MG TOP SCH (09:15)
[2021-09-26] MEDS: Lorazepam 0.5 MG TAB PO SCH (20:30)
[2021-09-26] MEDS: DULoxetine 30 MG CAP PO SCH (20:31)
[2021-09-27] MEDS: Acetaminophen 325 MG TAB PO SCH ×5 (05:42→21:57)
[2021-09-27] MEDS: Polyethylene Glycol 3350 17 GM Packet PO SCH (09:19)
[2021-09-27] MEDS: Clotrimazole 1% Cream 15 GM TUBE TOP SCH ×2 (09:19→20:04)
[2021-09-27] MEDS: Budesonide 0.5 MG/2 ML NEB NEB SCH ×2 (09:19→20:03)
[2021-09-27] MEDS: Diclofenac 1% 100 GM GEL TP SCH ×3 (09:19→20:04)
[2021-09-27] MEDS: Furosemide 40 MG TAB PO SCH (09:20)
[2021-09-27] MEDS: Aspirin 81 mg Enteric Coated Tablet PO SCH (09:20)
[2021-09-27] MEDS: Sacubitril 49 MG/Valsartan 51 MG TABLET PO SCH ×2 (09:20→20:01)
[2021-09-27] MEDS: Spironolactone 25 MG TAB PO SCH (09:20)
[2021-09-27] MEDS: Pramipexole Di-HCl 1 MG TAB PO SCH ×3 (09:20→20:03)
[2021-09-27] MEDS: Apixaban 5 MG TAB PO SCH ×2 (09:20→20:03)
[2021-09-27] MEDS: Carvedilol 3.125 MG TAB PO SCH ×2 (09:20→20:01)
[2021-09-27] MEDS: levETIRAcetam 500 MG TAB PO SCH ×2 (09:20→20:02)
[2021-09-27] MEDS: Emollient 15 oz bottle 450 ML, Triamcinolone Acetonide 200 MG TOP SCH (09:21)
[2021-09-27] MEDS: DULoxetine 30 MG CAP PO SCH (20:02)
[2021-09-27] MEDS: Lorazepam 0.5 MG TAB PO SCH (20:02)
[2021-09-28] MEDS: Acetaminophen 325 MG TAB PO SCH ×5 (05:38→21:01)
[2021-09-28] MEDS: Levothyroxine Sodium 125 MCG TAB PO SCH (05:39)
[2021-09-28] MEDS: Sacubitril 49 MG/Valsartan 51 MG TABLET PO SCH ×2 (09:40→21:07)
[2021-09-28] MEDS: Carvedilol 3.125 MG TAB PO SCH ×2 (09:40→21:07)
[2021-09-28] MEDS: Aspirin 81 mg Enteric Coated Tablet PO SCH (09:40)
[2021-09-28] MEDS: Spironolactone 25 MG TAB PO SCH ×2 (09:40→11:39)
[2021-09-28] MEDS: levETIRAcetam 500 MG TAB PO SCH ×2 (09:40→21:07)
[2021-09-28] MEDS: Polyethylene Glycol 3350 17 GM Packet PO SCH (09:40)
[2021-09-28] MEDS: Budesonide 0.5 MG/2 ML NEB NEB SCH ×2 (09:40→21:08)
[2021-09-28] MEDS: Apixaban 5 MG TAB PO SCH ×2 (09:40→21:04)
[2021-09-28] MEDS: Diclofenac 1% 100 GM GEL TP SCH ×3 (09:41→21:10)
[2021-09-28] MEDS: Clotrimazole 1% Cream 15 GM TUBE TOP SCH ×2 (09:41→21:08)
[2021-09-28] MEDS: Furosemide 40 MG TAB PO SCH (09:41)
[2021-09-28] MEDS: Pramipexole Di-HCl 1 MG TAB PO SCH ×3 (09:41→21:07)
[2021-09-28] MEDS: Emollient 15 oz bottle 450 ML, Triamcinolone Acetonide 200 MG TOP SCH (09:42)
[2021-09-28] MEDS: DULoxetine 30 MG CAP PO SCH (21:04)
[2021-09-28] MEDS: Lorazepam 0.5 MG TAB PO SCH (21:06)
[2021-09-29] MEDS: Acetaminophen 325 MG TAB PO SCH ×5 (05:35→20:42)
[2021-09-29] MEDS: Levothyroxine Sodium 125 MCG TAB PO SCH (05:36)
[2021-09-29] MEDS: Spironolactone 25 MG TAB PO SCH (08:57)
[2021-09-29] MEDS: Budesonide 0.5 MG/2 ML NEB NEB SCH ×2 (08:58→20:43)
[2021-09-29] MEDS: Pramipexole Di-HCl 1 MG TAB PO SCH ×3 (08:58→20:43)
[2021-09-29] MEDS: Aspirin 81 mg Enteric Coated Tablet PO SCH (08:58)
[2021-09-29] MEDS: Sacubitril 49 MG/Valsartan 51 MG TABLET PO SCH ×2 (08:58→20:43)
[2021-09-29] MEDS: levETIRAcetam 500 MG TAB PO SCH ×2 (08:58→20:43)
[2021-09-29] MEDS: Apixaban 5 MG TAB PO SCH ×2 (08:58→20:43)
[2021-09-29] MEDS: Clotrimazole 1% Cream 15 GM TUBE TOP SCH ×2 (08:59→20:44)
[2021-09-29] MEDS: Carvedilol 3.125 MG TAB PO SCH ×2 (08:59→20:43)
[2021-09-29] MEDS: Furosemide 40 MG TAB PO SCH (08:59)
[2021-09-29] MEDS: Diclofenac 1% 100 GM GEL TP SCH ×3 (08:59→20:45)
[2021-09-29] MEDS: Polyethylene Glycol 3350 17 GM Packet PO SCH (08:59)
[2021-09-29] MEDS: Emollient 15 oz bottle 450 ML, Triamcinolone Acetonide 200 MG TOP SCH (09:00)
[2021-09-29] MEDS: DULoxetine 30 MG CAP PO SCH (20:43)
[2021-09-29] MEDS: Lorazepam 0.5 MG TAB PO SCH (20:44)
[2021-09-30] MEDS: Levothyroxine Sodium 125 MCG TAB PO SCH (05:51)
[2021-09-30] MEDS: Acetaminophen 325 MG TAB PO SCH ×5 (05:51→22:37)
[2021-09-30] MEDS: Polyethylene Glycol 3350 17 GM Packet PO SCH (08:37)
[2021-09-30] MEDS: Clotrimazole 1% Cream 15 GM TUBE TOP SCH ×2 (08:38→20:17)
[2021-09-30] MEDS: Diclofenac 1% 100 GM GEL TP SCH ×3 (08:38→20:17)
[2021-09-30] MEDS: Sacubitril 49 MG/Valsartan 51 MG TABLET PO SCH ×2 (08:39→20:13)
[2021-09-30] MEDS: Pramipexole Di-HCl 1 MG TAB PO SCH ×3 (08:39→20:13)
[2021-09-30] MEDS: Apixaban 5 MG TAB PO SCH ×2 (08:39→20:13)
[2021-09-30] MEDS: Furosemide 40 MG TAB PO SCH (08:39)
[2021-09-30] MEDS: levETIRAcetam 500 MG TAB PO SCH ×2 (08:39→20:13)
[2021-09-30] MEDS: Aspirin 81 mg Enteric Coated Tablet PO SCH (08:39)
[2021-09-30] MEDS: Carvedilol 3.125 MG TAB PO SCH ×2 (08:40→20:14)
[2021-09-30] MEDS: Spironolactone 25 MG TAB PO SCH (08:40)
[2021-09-30] MEDS: Budesonide 0.5 MG/2 ML NEB NEB SCH ×2 (08:40→20:15)
[2021-09-30] MEDS: Emollient 15 oz bottle 450 ML, Triamcinolone Acetonide 200 MG TOP SCH (08:41)
[2021-09-30] MEDS: Lorazepam 0.5 MG TAB PO SCH (20:12)
[2021-09-30] MEDS: DULoxetine 30 MG CAP PO SCH (20:12)
[2021-10-01] MEDS: Acetaminophen 325 MG TAB PO SCH ×2 (06:11→10:00)
[2021-10-01] MEDS: Levothyroxine Sodium 125 MCG TAB PO SCH (06:11)
[2021-10-01 08:08] VITALS: BP 108/60; TEMP 97.8
[2021-10-01] MEDS: Apixaban 5 MG TAB PO SCH (08:48)
[2021-10-01] MEDS: Aspirin 81 mg Enteric Coated Tablet PO SCH (08:48)
[2021-10-01] MEDS: Budesonide 0.5 MG/2 ML NEB NEB SCH (08:48)
[2021-10-01] MEDS: levETIRAcetam 500 MG TAB PO SCH (08:48)
[2021-10-01] MEDS: Sacubitril 49 MG/Valsartan 51 MG TABLET PO SCH (08:48)
[2021-10-01] MEDS: Furosemide 40 MG TAB PO SCH (08:48)
[2021-10-01] MEDS: Carvedilol 3.125 MG TAB PO SCH (08:48)
[2021-10-01] MEDS: Diclofenac 1% 100 GM GEL TP SCH (08:48)
[2021-10-01] MEDS: Spironolactone 25 MG TAB PO SCH (08:48)
[2021-10-01] MEDS: Clotrimazole 1% Cream 15 GM TUBE TOP SCH (08:48)
[2021-10-01] MEDS: Emollient 15 oz bottle 450 ML, Triamcinolone Acetonide 200 MG TOP SCH (08:52)
[2021-10-01] MEDS: Polyethylene Glycol 3350 17 GM Packet PO SCH (08:52)
[2021-10-01] MEDS: Pramipexole Di-HCl 1 MG TAB PO SCH (08:52)
== END 2021-10-01 11:20 | disposition home health service (06) | DRG 948 ==
LOC: MADMS 17:43
PROVIDERS: ADMIT Family Medicine; ATTEND Family Medicine
DX: R53.81 Other malaise (principal); I69.354 Hemiplegia and hemiparesis following cerebral infarction affecting left non-dominant side; I48.20 Chronic atrial fibrillation, unspecified; I42.9 Cardiomyopathy, unspecified; I50.42 Chronic combined systolic (congestive) and diastolic (congestive) heart failure; J96.11 Chronic respiratory failure with hypoxia; Z74.01 Bed confinement status; G40.909 Epilepsy, unspecified, not intractable, without status epilepticus; I27.20 Pulmonary hypertension, unspecified; M06.9 Rheumatoid arthritis, unspecified; I25.10 Atherosclerotic heart disease of native coronary artery without angina pectoris; I08.1 Rheumatic disorders of both mitral and tricuspid valves; E78.5 Hyperlipidemia, unspecified; G43.909 Migraine, unspecified, not intractable, without status migrainosus; D64.9 Anemia, unspecified; F32.A Depression, unspecified; M17.11 Unilateral primary osteoarthritis, right knee; Z88.5 Allergy status to narcotic agent; Z88.0 Allergy status to penicillin; Z88.8 Allergy status to other drugs, medicaments and biological substances; Z99.3 Dependence on wheelchair; Z79.01 Long term (current) use of anticoagulants; I69.920 Aphasia following unspecified cerebrovascular disease
CPT/HCPCS: 36415; 80048; 80053; 82274; 85014; 85018; 85025; 85049; 94640; J3301; J7620; J7626; Q0162